=== PATIENT | male | born 1960 | race Caucasian/White ===

== ENCOUNTER 2020-11-29 04:59 | Inpatient (IN) ==
--- NOTE | 2020-11-09 14:15 | PAT Medication Instructions ---
Medication Instructions Date of Service November 09, 2020 Home Medications Medication Instructions Recorded hydrocodone-acetaminophen 1 - 2 tab PO .Q4-6h PRN #30 tab 09/23/20 MDD 6 Viibryd 10 mg PO QAM amlodipine 10 mg PO PM celecoxib 100 mg PO BID cholecalciferol (vitamin D3) [Vitamin D3] 25 mcg PO QAM losartan 100 mg PO QAM montelukast 10 mg PO QAM tramadol 50 mg PO QAM hydrocodone-acetaminophen 1 - 2 tab PO .Q4-6h PRN atorvastatin 10 mg PO QAM fluticasone propionate [Flonase] 1 spray INTRANASAL BID PRN gabapentin 300 mg PO QPM meloxicam 15 mg PO QPM multivitamin 1 tab PO QAM ASK your surgeon for instructions celecoxib 100 mg PO BID meloxicam 15 mg PO QPM DO NOT take the morning of surgery cholecalciferol (vitamin D3) [Vitamin D3] 25 mcg PO QAM losartan 100 mg PO QAM montelukast 10 mg PO QAM multivitamin 1 tab PO QAM Take morning of surgery With a small sip of water, OTHERWISE NOTHING TO EAT OR DRINK AFTER MIDNIGHT: Viibryd 10 mg PO QAM tramadol 50 mg PO QAM (okay to take up to 4 hours prior to surgery if needed) hydrocodone-acetaminophen 1 - 2 tab PO .Q4-6h PRN (okay to take up to 4 hours prior to surgery if needed) atorvastatin 10 mg PO QAM fluticasone propionate [Flonase] 1 spray INTRANASAL BID PRN (if needed) Take evening before surgery amlodipine 10 mg PO PM hydrocodone-acetaminophen 1 - 2 tab PO .Q4-6h PRN (if needed) fluticasone propionate [Flonase] 1 spray INTRANASAL BID PRN (if needed) gabapentin 300 mg PO QPM Other Notes If you have any questions please call us at [phone] or [phone] or [phone] or [phone]
--- NOTE | 2020-11-11 09:38 | Anesthesiology Consultation ---
Date of Service November 11, 2020 Assessment & Plan (1) Encounter for pre-operative examination: COVID Status: As of 11/11 assessment, patient denies travel to endemic area, known exposure/sick contacts, or symptoms of COVID19. Patient instructed that they and their household members must follow strict social distancing guidelines, wear a mask in public and avoid travel/events/gatherings for 14 days prior to surgery. Preoperative COVID19 testing to be completed prior to surgery per surgeon's arrangements (per pt 11/24). Patient made aware to self-isolate as much as possible between COVID testing and surgery. Pt is fully vaccinated. S/P shoulder arthroscopy 09/23/2020: MAC 4, ETT 7.5, grade view II. Chart Review Chart Review: Acceptable Risk for Surgery and Patient seen in Pre Admission T esting Teaching & Discussion Instructed NPO after midnight before surgery, except medications with 15 cc of water. Medication instructions provided according to the PAT guidelines. History Surgery Operation Date: 11/29/20 07:00 Proposed Procedures p Left Reversed Total Shoulder Arthroplasty - Shalom Vega MD Height/Weight Height: 6 ft Weight: 120.1 kg Allergies Allergy/AdvReac Type Severity Reaction Status Date / Time oxycodone [From OxyContin] Allergy Intermediate itching Verified 11/09/20 12:19 Medications Home Medications Medication Instructions Recorded Confirmed Last Taken Viibryd 10 mg PO QAM 09/06/20 11/09/20 09/22/20 07:00 amlodipine 10 mg PO PM 09/06/20 11/09/20 09/22/20 07:00 celecoxib 100 mg PO BID 09/06/20 11/09/20 09/22/20 07:00 cholecalciferol (vitamin D3) 25 mcg PO QAM 09/06/20 11/09/20 09/22/20 07:00 [Vitamin D3] losartan 100 mg PO QAM 09/06/20 11/09/20 09/22/20 07:00 montelukast 10 mg PO QAM 09/06/20 11/09/20 09/22/20 07:00 tramadol 50 mg PO QAM 09/06/20 11/09/20 09/22/20 07:00 hydrocodone-acetaminophen 1 - 2 tab PO .Q4-6h PRN #30 tab 09/23/20 11/09/20 Unknown MDD 6 atorvastatin 10 mg PO QAM 11/09/20 11/09/20 Unknown fluticasone propionate [Flonase] 1 spray INTRANASAL BID PRN 11/09/20 11/09/20 Unknown gabapentin 300 mg PO QPM 11/09/20 11/09/20 Unknown meloxicam 15 mg PO QPM 11/09/20 11/09/20 Unknown multivitamin 1 tab PO QAM 11/09/20 11/09/20 Unknown Past Medical History Medical History (Updated 11/11/20 @ 09:36 by Juventino Quijano) Anxiety Depression Hyperlipidemia Hypertension Osteoarthritis Sleep apnea cpap, pt reports full compliance Exercise / Class Metabolic Activity II 4-5 Yardwork/Stairs/Walk up hill Past Surgical History Surgical History (Updated 11/11/20 @ 09:36 by Juventino Quijano) History of appendectomy History of cholecystectomy History of colonoscopy MULTIPLE Hx of inguinal hernia repair Hx of shoulder surgery x3 left side Hx of sinus surgery x5 Past Anesthesia History No Hx of Anesthesia Complications and No Family Hx of Anesthesia Complications History of PONV No Hx of PONV and No Hx of Motion Sickness Social History Smoking Status: Never smoker Do You Dip or Chew Tobacco: No Hx Alcohol Use: Yes Alcohol type: hard liquor alcohol intake frequency: a few times a month Hx Substance Use: Yes Review of Systems Pt denies any recent chest pain, shortness of breath, palpitations, cough, fever, URI, or uncontrolled acid reflux. +shoulder pain Physical Exam Vital Signs BP: 151/88 P: 81bpm SPO2: 96% RA T: 97.9 F R: 16 ENMT Mouth: no dental restorations, no chipped teeth and no loose teeth Thyromental Distance: < 3.5 Finger Breadths (3) Mallampati Class: IV Neck normal visual inspection, + limited neck extension (mildly) and + facial hair (mustache) Respiratory normal respiratory effort, lungs clear to auscultation Cardiovascular RRR, no murmur, no edema Testing Laboratory Results Hemoglobin A1c 5.2 % (4.5-5.6) 11/11/20 09:49 Blood Type A Negative 11/11/20 09:49 Antibody Screen NEGATIVE 11/11/20 09:49 11/09/20 WBC: 7.1 H/H: 15.1/46.1 PLATELETS: 236 SODIUM: 141 POTASSIUM: 4.0 CHLORIDE: 105 CO2: 27 BUN: 17 CREATININE: 0.80 GLUCOSE: 85 PT: 13.8 PTT: 28 INR: 1.1 UA: WNL Electrocardiogram Date: 11/09/20 Sinus rhythm at 69 bpm with first-degree AV block. Left axis deviation. Compared with EKG of 08/31/2020, no significant change was found. Chest X-Ray Date: 11/09/20 Findings: + NAD
[2020-11-11 11:37] LABS: Estimated Average Glucose 103 mg/dl; Hemoglobin A1C 5.2 % (4.5-5.6)
--- NOTE | 2020-11-27 19:45 | History & Physical Report ---
Date of Service November 27, 2020 Assessment & Plan (1) Full thickness rotator cuff tear: Patient has a massive retracted rotator cuff tear that is not amenable to repair. He has failed conservative measures as above, as well as arthroscopic debridement. He has continued pain and dysfucntion. Treatment options discussed with patient. Risks, benefits and alternatives to surgery including but not limited to infection, DVT, pain, stiffness, need for revision surgery, damage to blood vessels, damage to nerves, PE, , were discussed with the patient and they wish to proceed. Plan will be for left reverse total shoulder arthroplasty at [facility] on 11/29/[address] Vega. All questions answered. He will follow up post operatively. Rotator cuff tear trauma status: traumatic Encounter type: s ubsequent encounter Laterality: left Qualified Code(s): S46.012D - Strain of muscle(s) and tendon(s) of the rotator cuff of left shoulder, subsequent encounter History of Present Illness Chief Complaint: Left shoulder pain Primary Care Provider: Frederick Hurd MD 59 year old male with PMHx significant for HTN, DEENA, high cholesterol presented to the office with acute onset left shoulder pain after a fall onto lateral aspect of arm. He has failed conservative measures including NSAIDs and physical therapy, as well as arthroscopic debridement. Has persistent shoulder pain and dysfunction. He has history of prior rotator cuff repair and revision repair. He had done well up until this new injury. CT arthrogram was obtained, due to metal anchors in his shoulder an MRI was not conclusive. Earlier this year he underwent arthroscopy on left shoulder and was found to have a massive irreparable rotator cuff tear. He has continued pain and dysfunction and cannot complete leisure or daily activities due to his pain. He would like to proceed with surgical intervention. Patient denies headaches, sweats, fevers, chills, double vision, blurred vision, cough, sore throat, dysphagia, chest pain, sob, wheezing, n/v/d/c, numbness, tingling, fatigue, urinary symptoms, mood disorders. ROS positive for left shoulder pain and stiffness. Allergies Allergy/AdvReac Type Severity Reaction Status Date / Time oxycodone [From OxyContin] Allergy Intermediate itching Verified 11/09/20 12:19 Home Medications Medication Instructions Recorded Confirmed Type Viibryd 10 mg PO QAM 09/06/20 11/09/20 History amlodipine 10 mg PO PM 09/06/20 11/09/20 History celecoxib 100 mg PO BID 09/06/20 11/09/20 History cholecalciferol (vitamin D3) 25 mcg PO QAM 09/06/20 11/09/20 History [Vitamin D3] losartan 100 mg PO QAM 09/06/20 11/09/20 History montelukast 10 mg PO QAM 09/06/20 11/09/20 History tramadol 50 mg PO QAM 09/06/20 11/09/20 History hydrocodone-acetaminophen 1 - 2 tab PO .Q4-6h PRN #30 tab 09/23/20 11/09/20 Rx MDD 6 atorvastatin 10 mg PO QAM 11/09/20 11/09/20 History fluticasone propionate [Flonase] 1 spray INTRANASAL BID PRN 11/09/20 11/09/20 History gabapentin 300 mg PO QPM 11/09/20 11/09/20 History meloxicam 15 mg PO QPM 11/09/20 11/09/20 History multivitamin 1 tab PO QAM 11/09/20 11/09/20 History Past Med/Surg History Medical History (Updated 11/11/20 @ 09:36 by Juventino Quijano) Anxiety Depression Hyperlipidemia Hypertension Osteoarthritis Sleep apnea cpap, pt reports full compliance Surgical History (Updated 11/11/20 @ 09:36 by Juventino Quijano) History of appendectomy History of cholecystectomy History of colonoscopy MULTIPLE Hx of inguinal hernia repair Hx of shoulder surgery x3 left side Hx of sinus surgery x5 Social History Smoking Status: Never smoker Second Hand Exposure: Yes (SPOUSE SMOKED); Do You Dip or Chew Tobacco: No; Hx Alcohol Use: Yes Alcohol type: hard liquor Hx Substance Use: Yes Preferred Language: Tongan Communication Ability: Effective Multiple Effect Evaporator Operator Required: No Beliefs That Will Affect Care: None Current Living Situation: Alone Other Information That Helps Us Care for You: No Feels Safe at Home: Yes Safety Concerns: Feels Safe At This Time Assistive Devices: Glasses Review of Systems All systems reviewed & are unremarkable except as noted in HPI & below Physical Exam Constitutional: well developed and well nourished; no acute distress Eyes: PERRL, conjunctivae normal, anicteric sclerae ENMT: external ear and nose normal, oropharynx normal Neck: trachea midline, no thyromegaly Respiratory: normal respiratory effort, lungs clear to auscultation Cardiovascular: RRR, no murmur, no edema Musculoskeletal: Left shoulder: positive impingement signs, ROM FF to 80 degrees actively, 160 passive. Abduction to 80 degrees actively and 160 passively. ROM is painful. Decreased strength left side. Strength 3/5 supraspinatus, 3+/5 infraspinatus, 5/5 subscapularis. Skin: no rashes, warm and dry Neurologic: patellar DTR's 2+ bilat, sensation intact Psychiatric: A+Ox3, euthymic affect Results & Data ([facility]) Laboratory Results Lab Results 11/11/20 11/11/20 Range/Units 09:49 09:49 Estimat Average Glucose 103 mg/dl Hemoglobin A1c 5.2 (4.5-5.6) % Blood Type A Negative Antibody Screen NEGATIVE Diagnostic Findings Left shoulder radiographs: No fracture. Mild degenerative changes. Post operative changes related to previous arthroscopy with metallic anchors humeral head. CT arthrogram: Full thickness recurrent tear rotator cuff retraction. Mild to moderate atrophy supraspinatus and infraspinatus
[2020-11-29] MEDS ORDERED: CeleBREX 200 MG CAP PO SCH (06:00)
[2020-11-29] MEDS ORDERED: FAMOTIDINE 20 MG TAB PO SCH (06:00)
[2020-11-29] MEDS ORDERED: TRANEXAMIC ACID 1,000 MG **IV Pre-op IV SCH (06:00)
[2020-11-29] MEDS ORDERED: ACETAMINOPHEN 500 MG TAB PO SCH (06:00)
[2020-11-29] MEDS ORDERED: dexAMETHasone 4 MG TAB PO SCH (06:00)
[2020-11-29] MEDS ORDERED: METOCLOPRAMIDE HCL 10 MG TABLET PO SCH (06:00)
[2020-11-29] MEDS ORDERED: LR 15ML/HR IV SCH (06:00)
[2020-11-29] MEDS ORDERED: TRANEXAMIC ACID 1,000 MG **IV Intra-op IV SCH (06:00)
[2020-11-29] MEDS ORDERED: GABAPENTIN 600 MG DOSE PO SCH (06:00)
[2020-11-29] MEDS ORDERED: BUPIVACAINE 0.5 % 5 MG/1 ML PF 10ML VIAL ONE (06:20)
[2020-11-29] MEDS ORDERED: ONDANSETRON INJ 2 MG/ML 2 ML VIAL ONE (06:43)
[2020-11-29] MEDS ORDERED: LIDOCAINE 2% 2 ML VIAL/AMP(20MG/ML) INFIL ONE (06:43)
[2020-11-29] MEDS ORDERED: DEXAMETHASONE SOD INJ 4 MG/ML VIAL ONE (06:43)
[2020-11-29] MEDS ORDERED: PROPOFOL IV EMULSION 10 MG/ML 20 ML VIAL IV ONE (06:43)
[2020-11-29] MEDS ORDERED: MIDAZOLAM HCL 1 MG/ML 2ML VIAL ONE (06:43)
[2020-11-29] MEDS ORDERED: fentaNYL citrate 100 MCG/2 ML VIAL ONE ×2 (06:43→08:13)
[2020-11-29] MEDS ORDERED: GLYCOPYRROLATE 0.2 MG/ML VIAL ONE (06:43)
[2020-11-29] MEDS ORDERED: NEOSTIGMINE METHYLSULFATE 5 MG/5 ML SYR ONE (06:43)
[2020-11-29] MEDS ORDERED: ePHEDrine sulfate 50 MG/ML AMP IV PRN (06:55)
[2020-11-29] MEDS ORDERED: fentaNYL citrate 100 MCG/2 ML VIAL IV PRN (06:55)
[2020-11-29] MEDS ORDERED: ONDANSETRON INJ 2 MG/ML 2 ML VIAL IV PRN ×2 (06:55→11:46)
[2020-11-29] MEDS ORDERED: ATROPINE SULFATE 0.1 MG/ML 10ML SYR IV PRN (06:55)
[2020-11-29] MEDS ORDERED: PROMETHAZINE HCL 6.25 MG in SODIUM CHLORIDE 0.9% 50 ML IV PRN (06:55)
--- NOTE | 2020-11-29 07:11 | History & Physical Bridge Note ---
Date of Service November 29, 2020 History & Physical Bridge Note I have examined the patient, reviewed the History & Physical and in the interval since the performance of the History & Physical I have noted the following changes of clinical significance: no changes noted
[2020-11-29] MEDS ORDERED: ePHEDrine sulfate 50 MG/ML AMP ONE (08:35)
[2020-11-29] MEDS ORDERED: ROCURONIUM BROMIDE 10 MG/ML 5 ML VIAL IV ONE ×3 (08:48→11:40)
--- NOTE | 2020-11-29 10:19 | Operative Report ---
Post Operative Report Pre & Post Diagnosis Operation Date: 11/29/20 07:00 Pre-Op Diagnosis: Left Shoulder Rotator Cuff Arthropathy, history of prior rotator cuff surgeries with recent arthroscopy documenting irreparable rotator cuff tear and biceps tendon retraction. Post-Op Diagnosis: Left shoulder rotator cuff arthropathy, irreparable full Thickness Rotator Cuff Tear, Incomplete Fracture Of Left proximal humerus retained hardware prior rotator cuff repair I identified the patient and participated in the time-out.: Yes Procedure Operation Date: 11/29/20 07:00 Actual Procedures p Left Reversed Total Shoulder Arthroplasty; Removal of Hardware (suture anchor); Dall Miles Cable fixation small Incomplete Fracture Of Left Humerus Fracture(Left) - Shalom Vega MD Surgeon Shalom Vega MD Reserve Officer Renan Aguirre Estimated Blood Loss 120 Findings Consistent with Post-Op Diagnosis Specimens Humeral head Drains 2 Hemovac Anesthesia Type General Regional Complications Small incomplete fracture proximal humerus anterior lateral humeral neck Disposition Accompanied Patient To Recovery: No Disposition: Recovery Room Indications 60-year-old male with multiple prior left shoulder arthroscopies with rotator cuff repair surgery in the past with a recent fall and a retear of his rotator cuff with failed rotator cuff repair and irreparable rotator cuff tear based on recent arthroscopy. Patient failed to have o any improvement with arthroscopic debridement. Description of Procedure The patient was taken to the operating room and anesthetized under regional block and general anesthetic. The patient was positioned on the operating table in a 30 beachchair position with a towel roll under the medial border of the left scapula. The arm was draped free to be able to manipulate the shoulder as needed. The left upper extremity was prepped and draped in usual sterile fashion. Exam demonstrated 130 degrees forward elevation 70 degrees abduction and 25 degrees external rotation. An anterior deltopectoral approach was performed. A longitudinal incision was made in the deltopectoral interval. The skin was incised sharply. Subcutaneous flaps were elevated off the fascia. The cephalic vein was dissected out and retracted lateral with the deltoid. The clavipectoral fascia was divided at the lateral margin of the conjoined tendon and extended up to the CA ligament. The following findings were noted subscapularis tendon was intact there was a small bit of supraspinatus intact in the rotator interval otherwise there was just scar tissue with scarred bursa in the superior rotator cuff area. There was an absent biceps tendon.. The upper centimeter of the pectoralis was released for inferior exposure. The subscapularis tendon was taken down off the lesser tuberosity using a subperiosteal peel dissection. A #1 Vicryl traction suture was placed into the free end of the subscapularis tendon and capsule. The subscapular muscle fibers were split longitudinally at the level of the circumflex vessels. The circumflex vessels were identified and tied off with silk ties and divided laterally. A Kitner elevator was used to free up the inferior fibers of the subscapularis off of the capsule. The axillary nerve was identified with a tug test and protected with a blunt Wanda retractor between the nerve and the capsule. The subscapularis tendon was then taken down off of the lesser tuberosity subperiosteally and subperiosteal dissection was performed along the neck of the humerus as the arm is gradually externally rotated exposing the humeral head. The humeral head findings demonstrated no osteophytes minor arthritic changes with intact articular surface. A Quispe elevator was used to assist in releasing the capsule of the neck of the humerus. The capsule was divided with Horne scissors down to the glenoid released off the anterior glenoid and the rotator interval was released to meet the capsular release and a 360 release of the subscapularis was accomplished. A Fukuda retractor was placed into the joint retracting the humeral head posterior. Glenoid findings demonstrated intact labrum but biceps was absent. The labrum was resected. an anterior-inferior and posterior inferior capsular release were performed with electrocautery and a Quispe elevator on bone with the axillary nerve protected inferiorly by the retractor. Attention was then taken to the humeral preparation. The cutting guide was placed into the humeral head. It was positioned at 20 of retroversion. Oscillating saw was used to resect the humeral head making the cut above the level of the posterior rotator cuff insertion site. The saw did hit some of the suture anchors making this cut so a remove the involved anchor with a rongeur. The humerus was then prepared for the stem. I used the ascend flex stem from [employer]. The sizing broaches were used followed by trial broaches up to a size 6 which had the appropriate fit and fill. The bone was very hard. There was dense metaphyseal bone as well. I did note that while broaching when the final broach was seated a crack developed in the anterior lateral neck area that did not extend distally but did extend about 5 mm. This was on the anterior lateral neck area below the subscapularis attachment site. I felt this possibly could propagate when putting in the final implants I put a 2 mm Dall-Miles cable around the proximal humerus tightened it appropriately and crimped the fixation device cut the wire to length and proceeded with the glenoid exposure. The appropriate sized cut protector was placed. The humerus was then retracted posterior to the glenoid. The glenoid was sized for a 42 mm glenoid sphere and 29 baseplate. The guide for the baseplate was positioned in a 10 inferior tilt and the central drill hole was made. The reamer for the 29 baseplate was used. The central drill was widened for the peg. The Tornier hydroxyapatite-coated 29 mm baseplate baseplate was impacted into position. The base plate was transfixed with superior and inferior locking screws and anterior and posterior compression screws with stable fixation. The fan reamer was used for the 42 millimeter glenoid sphere. After irrigation the 42 mm standard glenoid sphere was impacted onto the bas eplate and the screw was tightened. Attention was taken back to the humerus. The cut protector was removed and the plus 0 high offset humeral tray trial was assembled to the trial stem rotated appropriately to get bony coverage and then screwed in position. A trial reduction was performed. A 42+6 reversed trial insert demonstrated good stability and no shuck. The trials were removed. 3 drill holes are made into the harder bone in the bicipital groove area and 3 #5 FiberWire sutures were placed transosseously. The canal was irrigated with antibiotic solution with bacitracin. The final component was assembled. The final component was Tornier 6B long PTC stem, plus or high offset tray, 42+6 reversed insert. This was then impacted into the humerus with a tight press- fit. It was reduced to the glenoid sphere. Stability was verified. Subscapularis was repaired with the #5 FiberWire sutures using Devin-Burton suture technique. The pectoralis was repaired with #2 FiberWire [id number] sutures. The arm was taken through a range of motion which demonstrated 130 degrees forward elevation 9 degrees abduction and 50 degrees X rotation without tension on repair. The implant was stable through the range of motion tested. The wound was copiously irrigated. 2 Hemovac drains were placed. The deltopectoral interval was closed with [id number] #1 Vicryl sutures. The subcutaneous tissues were closed with 2-0 Vicryl sutures. The skin was closed with ivory. Sterile dressings were applied and a shoulder immobilizer. Renan Aguirre my physician digital marketing assistant assisted in the procedure to the entire procedure including patient positioning arm positioning prepping and draping soft tissue retraction instrument management suture management and performed the subcutaneous and skin closure and will participate in the postoperative care of the patient. I attest to the content of the Intraoperative Record and any orders documented therein. Any exceptions are noted below.
--- NOTE | 2020-11-29 11:12 | Anesthesiology Progress Note ---
Date of Service November 29, 2020 Anesthesia Post Procedure Vital Signs Vital Signs: Temp Pulse Pulse Resp BP Pulse Ox 11/29/20 11:05 37.3 C 94 H 21 128/71 92 11/29/20 10:55 92 H 20 117/72 91 11/29/20 10:45 94 H 18 125/70 91 11/29/20 10:35 95 H 21 128/75 95 11/29/20 10:25 89 20 129/73 94 11/29/20 10:19 36.4 C L 95 H 16 119/72 95 11/29/20 05:46 36.6 C 82 20 153/89 H 97 Pain Intensity Left Shoulder: Pain Intensity: 0 Transfer of Care Handoff Completed per policy Notes Mental Status: alert / awake / arousable Patient Amnestic to Procedure: Yes Nausea / Vomiting: adequately controlled Pain: adequately controlled Airway Patency, RR, SpO2: stable & adequate BP & HR: stable & adequate Hydration State: stable & adequate Anesthetic Complications: no major complications apparent Notes: block working well in pacu
[2020-11-29] MEDS ORDERED: HYDROmorphone INJ 0.5 MG/0.5 ML SYR IV PRN (11:46)
[2020-11-29] MEDS ORDERED: MAGNESIUM HYDROXIDE SUSP 30 ML UDC PO PRN (11:46)
[2020-11-29] MEDS ORDERED: NALOXONE HCL 0.4 MG/1 ML VIAL/CARP IV PRN (11:46)
[2020-11-29] MEDS ORDERED: FLUTICASONE PROPIONATE NA SPR 16 GM BTL PRN (11:46)
[2020-11-29] MEDS ORDERED: bisacodyL 10 MG SUPP PR PRN (11:46)
[2020-11-29] MEDS ORDERED: METOCLOPRAMIDE HCL INJ 5 MG/ML 2 ML VIAL IV PRN (11:46)
[2020-11-29] MEDS ORDERED: SODIUM CHLORIDE 0.9% 1000ML 1,000 ML IV SCH (11:46)
--- NOTE | 2020-11-29 11:59 | XRay Report ---
XR shoulder LT min 2V routine CLINICAL HISTORY: Post shoulder surgery COMPARISON: None. Correlation is made with CT of the left shoulder performed on August 23, 2020. DISCUSSION: Interval placement of a prosthetic left shoulder joint. Mild subcutaneous emphysema and skin ivory are seen. Small left pleural effusion is seen as well as mild atelectasis at the left base. IMPRESSION: 1. Postoperative changes as detailed above. 2. Small left pleural effusion as well as atelectasis at the left base. ACT 112: Negative or not required by law. Electronically signed by: Socorro Lin DO 11/29/2020 11:57 AM
--- NOTE | 2020-11-29 12:41 | Hospitalist Consultation ---
Date of Consultation November 29, 2020 Assessment & Plan (1) Full thickness rotator cuff tear: 11/29/20 Left Reversed Total Shoulder Arthroplasty, Dall Miles Cable Small Incomplete Fracture Of Left Humerus Fracture Surgeon: Shalom Vega. Surgery to manage pain management DVT prophylaxis and drains and dressings Patient be maintained on his gabapentin and choice of Celebrex as per surgical preference (2) Hypertension: Patient continue on amlodipine 10 losartan 100 (3) Hyperlipidemia: Patient tangela on atorvastatin 10 (4) Depression: For his depression he is on VIBRYD 10 mg he says he is okay missing a day of this is its a new antidepressant in the hospital is not have it on formulary (5) Sleep apnea: Per his home CPAP unit but looks for respiratory therapy to come up with some solutions to help him place his CPAP mask on with one hand is he is going to be slightly limited with his left shoulder surgery over the next couple of weeks History of Present Illness Attending Physician: Shalom Vega MD History of Present Illness Rest of see the patient medical consultation after he underwent a left reverse total shoulder shoulder arthroplasty with a Dall-Miles cable small incomplete fracture left humerus fracture repair 11/29/2020 Postoperatively patient was awake and alert he had a bandage on his left shoulder he had a WIL Hemovac in place he was mostly concerned about wearing his CPAP at night trying to put his mask on with one hand. He is also concerned as he does live alone. He was aware that we do not carry his depression medication and he is okay missing 1 day. Allergies Allergy/AdvReac Type Severity Reaction Status Date / Time oxycodone [From OxyContin] Allergy Intermediate itching Verified 11/29/20 05:29 Home Medications Medication Instructions Recorded Confirmed Type Viibryd 10 mg PO QAM 09/06/20 11/29/20 History amlodipine 10 mg PO PM 09/06/20 11/29/20 History celecoxib 100 mg PO BID 09/06/20 11/29/20 History cholecalciferol (vitamin D3) 25 mcg PO QAM 09/06/20 11/29/20 History [Vitamin D3] losartan 100 mg PO QAM 09/06/20 11/29/20 History montelukast 10 mg PO QAM 09/06/20 11/29/20 History tramadol 50 mg PO QAM 09/06/20 11/29/20 History hydrocodone-acetaminophen 1 - 2 tab PO .Q4-6h PRN #30 tab 09/23/20 11/29/20 Rx MDD 6 atorvastatin 10 mg PO QAM 11/09/20 11/29/20 History fluticasone propionate [Flonase] 1 spray INTRANASAL BID PRN 11/09/20 11/29/20 History gabapentin 300 mg PO QPM 11/09/20 11/29/20 History meloxicam 15 mg PO QPM 11/09/20 11/29/20 History multivitamin 1 tab PO QAM 11/09/20 11/29/20 History Patient History Medical History (Updated 11/29/20 @ 12:36 by Yousuf Phelps MD) Anxiety Depression Hyperlipidemia Hypertension Osteoarthritis Sleep apnea cpap, pt reports full compliance Surgical History History of appendectomy History of cholecystectomy History of colonoscopy MULTIPLE Hx of inguinal hernia repair Hx of shoulder surgery x3 left side Hx of sinus surgery x5 Social History Smoking Status: Never smoker Second Hand Exposure: Yes (SPOUSE SMOKED); Do You Dip or Chew Tobacco: No; Hx Alcohol Use: Yes Alcohol type: hard liquor Hx Substance Use: Yes Preferred Language: Pashto Communication Ability: Effective Threshing Operator Required: No Beliefs That Will Affect Care: None Current Living Situation: Alone Other Information That Helps Us Care for You: No Feels Safe at Home: Yes Safety Concerns: Feels Safe At This Time Assistive Devices: Glasses Review of Systems Review of Systems: Mild pain in his left shoulder, no distress, mild fatigue no headache, blurry or double vision no speech or swallowing issues chronic sinus congestion Minor left chest wall pain, pressure or palpitations no shortness of breath, cough or wheezes no abdominal pain, nausea or vomiting, diarrhea or constipation no dysuria, hematuria or frequency Left shoulder discomfort no back pain, CVA tenderness or radicular pain no bruising, bleeding or rashes no focal signs of weakness or numbness or altered sensation no complaints of anxiety or depression.. Physical Exam Physical Exam: The patient appeared well nourished and normally developed. Vital signs as documented. Head exam is normocephalic atraumatic Neck is without JVD, thyromegaly, or carotid bruits. Lungs are clear to auscultation, no focal loss of breath sounds Cardiac exam, Rhythm is regular.. No murmurs, rubs or gallops. Abdominal exam reveals normal bowel sounds, soft non tender, no masses Left shoulder has Elastoplast in place with a WIL drain he has good distal strength and sensation to his hand with good capillary refill in the left side Neurologic exam is alert and oriented, no focal loss of strength or sensation Skin is without bruises or rashes Psychologically is without concerns for anxiety or depression Results & Data Results & Data ([facility]) Vital Signs (Past 12 Hours) Vital Signs Temp Pulse Pulse Resp BP Pulse Ox 11/29/20 12:00 104 H 18 119/80 91 11/29/20 11:15 99.1 F 92 H 17 127/74 92 11/29/20 11:05 99.1 F 94 H 21 128/71 92 11/29/20 10:55 92 H 20 117/72 91 11/29/20 10:45 94 H 18 125/70 91 11/29/20 10:35 95 H 21 128/75 95 11/29/20 10:25 89 20 129/73 94 11/29/20 10:19 97.5 F L 95 H 16 119/72 95 11/29/20 05:46 97.9 F 82 20 153/89 H 97 PG Care Time/CCT Total # of Minutes Spent Total Time Spent with Patient: Total time spent is greater than 50% in coordination of care (as documented) at patient's floor/unit and/or counseling patient: Coding Level of Care Code 03166 Inpt Consult Level 3 Diagnoses Full thickness rotator cuff tear S46.012D Rotator cuff tear trauma status: traumatic Encounter type: subsequent encounter Laterality: left Hypertension I10 Hyperlipidemia E78.5 Depression F32.9 Sleep apnea G47.30 (1) Full thickness rotator cuff tear Rotator cuff tear trauma status: traumatic Encounter type: subsequent encounter Laterality: left Qualified Code(s): S46.012D - Strain of muscle(s) and tendon(s) of the rotator cuff of left shoulder, subsequent encounter
[2020-11-29] MEDS: ceFAZolin 2000MG 2,000 MG/15 ML SYR IV SCH ×2 (15:34→23:07)
--- NOTE | 2020-11-29 20:14 | Orthopedic Progress Note ---
Date of Service November 29, 2020 Assessment & Plan (1) Status post reverse total shoulder replacement: Stable post left reverse shoulder placement. I discussed a minor complication with a small crack that started placing the press-fit stem trial in place and we cabled it prior to putting the final implant in and was no adverse event with stable fixation of the final implant. I discussed with him that this should not affect his recovery and we will not take any particular precautions and participate in the normal reverse TSA rehab. Admission and Anticipated Discharge Date Admission Date: November 29, 2020 Subjective Patient doing well postop no pain able to move his hand. Still some numbness from the block. Review of Systems Review of Systems: Unremarkable feeling well. Physical Exam Physical Exam: Patient in sling good circulation sensorimotor exam. Results & Data ([facility]) Vital Signs (Past 12 Hours) Vital Signs Temp Pulse Pulse Pulse Resp BP Pulse Ox 11/29/20 19:12 36.6 C 96 H 18 135/84 92 11/29/20 14:30 36.7 C 103 H 18 130/78 11/29/20 13:24 99 H 18 113/56 L 11/29/20 12:34 106 H 18 141/78 H 91 11/29/20 12:00 104 H 18 119/80 91 11/29/20 11:30 37.0 C 103 H 18 113/56 L 11/29/20 11:15 37.3 C 92 H 17 127/74 92 11/29/20 11:05 37.3 C 94 H 21 128/71 92 11/29/20 10:55 92 H 20 117/72 91 11/29/20 10:45 94 H 18 125/70 91 11/29/20 10:35 95 H 21 128/75 95 11/29/20 10:25 89 20 129/73 94 11/29/20 10:19 36.4 C L 95 H 16 119/72 95
[2020-11-29] MEDS: DOCUSATE SODIUM 100 MG CAP PO SCH (20:33)
[2020-11-29] MEDS ORDERED: SENNA 8.6 MG TAB PO SCH (21:00)
[2020-11-29] MEDS ORDERED: GABAPENTIN 300 MG CAP PO SCH (21:00)
[2020-11-29] MEDS ORDERED: amLODIPine BESYLATE 5 MG TAB PO SCH (21:00)
[2020-11-30] MEDS: HYDROCODONE/ACETAMOPHEN 5/325MG TAB PO PRN ×2 (05:03→09:06)
[2020-11-30 07:07] LABS: Hematocrit (blood only) 39.9 % (42-52); Hemoglobin 13.5 g/dL (14.0-18.0); Immature Granulocytes # (auto) 0.04 K/uL (0.00-0.02); Immature Granulocytes % (auto) 0.3 %; Lymphocytes # (auto) 1.63 K/uL (1.2-3.4); Lymphocytes % (auto) 10.4 %; Mean Corpuscular Hemoglobin 31.3 pg (25-34); Mean Corpuscular Hgb Conc 33.8 g/dL (32-36); Mean Corpuscular Volume 92.6 fL (80-100); Mean Platelet Volume 9.4 fL (7.4-10.4); Monocytes # (auto) 1.13 K/uL (0.11-0.59); Monocytes % (auto) 7.2 %; Neutrophils # (auto) 12.86 K/uL (1.4-6.5); Neutrophils % (auto) 82.1 %; Platelet Count 231 K/uL (130-400); RDW Coefficient of Variation 13.3 % (11.5-14.5); RDW Standard Deviation 45.3 fL (36.4-46.3); Red Blood Count 4.31 M/uL (4.7-6.1); White Blood Count 15.66 K/uL (4.8-10.8)
[2020-11-30 07:25] LABS: BUN Creatinine Ratio 23.8 (10-20); Calcium 8.8 mg/dl (8.5-10.1); Creatinine Clr Calc Pharmacy 121.9 ml/min; Potassium 3.8 mmol/L (3.5-5.1)
--- NOTE | 2020-11-30 07:51 | Orthopedic Progress Note ---
Date of Service November 30, 2020 Assessment & Plan (1) Status post reverse total shoulder replacement: POD 1 s/p Left Reverse TSA PT/OT protocol this morning. Nonweightbearing on the left upper extremity DVT prophylaxis as written Pain management as written DC planning-plan for discharge to home with outpatient PT to begin after the patient's first return visit to the office. Admission and Anticipated Discharge Date Admission Date: November 29, 2020 Subjective Postop day 1 Patient is sitting up in bed awake and alert. Dr. Vega is currently seeing the patient as well. He has discussed with the patient about the small fracture in the humerus that was repaired with a cable. Patient is having a little bit of discomfort in his left shoulder after his block is worn off but his pain medications are helping. No other complaints at this time. Denies shortness of breath, chest pain, lightheadedness. He is hoping to go home today. Physical Exam Physical Exam: Dressings are clean, dry, and intact. NV intact. Moving fingers and wrist well. Cap refill is less than 2 seconds. Sensation intact. HV 50ml this AM. Results & Data ([facility]) Vital Signs (Past 12 Hours) Vital Signs Temp Pulse Pulse Resp BP Pulse Ox 11/30/20 07:19 36.5 C 84 16 146/76 H 94 11/30/20 04:28 36.8 C 82 18 135/71 93 11/29/20 23:36 36.7 C 90 18 114/68 96 11/29/20 20:32 88 119/74 Laboratory Results Laboratory Results WBC 15.66 K/uL (4.8-10.8) H 11/30/20 06:53 RBC 4.31 M/uL (4.7-6.1) L 11/30/20 06:53 Hgb 13.5 g/dL (14.0-18.0) L 11/30/20 06:53 Hct 39.9 % (42-52) L 11/30/20 06:53 MCV 92.6 fL (80-100) 11/30/20 06:53 MCH 31.3 pg (25-34) 11/30/20 06:53 MCHC 33.8 g/dL (32-36) 11/30/20 06:53 RDW Std Deviation 45.3 fL (36.4-46.3) 11/30/20 06:53 RDW Coeff of Luz 13.3 % (11.5-14.5) 11/30/20 06:53 Plt Count 231 K/uL (130-400) 11/30/20 06:53 MPV 9.4 fL (7.4-10.4) 11/30/20 06:53 Immature Gran % (Auto) 0.3 % 11/30/20 06:53 Neut % (Auto) 82.1 % 11/30/20 06:53 Lymph % (Auto) 10.4 % 11/30/20 06:53 [place] % (Auto) 7.2 % 11/30/20 06:53 Eos % (Auto) 0.0 % 11/30/20 06:53 Baso % (Auto) 0.0 % 11/30/20 06:53 Neut # (Auto) 12.86 K/uL (1.4-6.5) H 11/30/20 06:53 Lymph # (Auto) 1.63 K/uL (1.2-3.4) 11/30/20 06:53 [place] # (Auto) 1.13 K/uL (0.11-0.59) H 11/30/20 06:53 Eos # (Auto) 0.00 K/uL (0-0.5) 11/30/20 06:53 Baso # (Auto) 0.00 K/uL (0-0.2) 11/30/20 06:53 Immature Gran # (Auto) 0.04 K/uL (0.00-0.02) H 11/30/20 06:53 Sodium 139 mmol/L (136-145) 11/30/20 06:53 Potassium 3.8 mmol/L (3.5-5.1) 11/30/20 06:53 Chloride 107 mmol/L (98-107) 11/30/20 06:53 Carbon Dioxide 26 mmol/L (21-32) 11/30/20 06:53 Anion Gap 6.0 (3-11) 11/30/20 06:53 BUN 21 mg/dl (7-18) H 11/30/20 06:53 Creatinine 0.88 mg/dl (0.6-1.4) 11/30/20 06:53 Est Cr Clr Drug Dosing 121.9 ml/min 11/30/20 06:53 Est GFR ( Amer) 109.0 ml/min 11/30/20 06:53 Est GFR (Non-Af Amer) 94.0 ml/min 11/30/20 06:53 BUN/Creatinine Ratio 23.8 (10-20) H 11/30/20 06:53 Glucose 127 mg/dl (70-99) H 11/30/20 06:53 Estimat Average Glucose 103 mg/dl 11/11/20 09:49 Hemoglobin A1c 5.2 % (4.5-5.6) 11/11/20 09:49 Calcium 8.8 mg/dl (8.5-10.1) 11/30/20 06:53 COVID-19 Eval Order Covid19 [facility] 11/29/20 05:20 SARS-CoV-2, RNA, NAAT NEGATIVE (NEGATIVE) 11/29/20 05:20 Blood Type A Negative 11/11/20 09:49 Antibody Screen NEGATIVE 11/11/20 09:49 Impressions Shoulder X-Ray 11/29/20 10:46 XR shoulder LT min 2V routine CLINICAL HISTORY: Post shoulder surgery COMPARISON: None. Correlation is made with CT of the left shoulder performed on August 23, 2020. DISCUSSION: Interval placement of a prosthetic left shoulder joint. Mild subcutaneous emphysema and skin ivory are seen. Small left pleural effusion is seen as well as mild atelectasis at the left base. IMPRESSION: 1. Postoperative changes as detailed above. 2. Small left pleural effusion as well as atelectasis at the left base. ACT 112: Negative or not required by law. Electronically signed by: Socorro Lin DO 11/29/2020 11:57 AM
--- NOTE | 2020-11-30 08:00 | Hospitalist Progress Note ---
Date of Service November 30, 2020 Assessment & Plan (1) Full thickness rotator cuff tear: POD#1 s/p Left Reversed Total Shoulder Arthroplasty, Kirill Laughlin Small Incomplete Fracture Of Left Humerus Fracture with Dr. Vega on 11/29 Patient be maintained on his gabapentin and choice of Celebrex as per surgical preference H/h 13.5/39.9 -- acute blood loss anemia from surgery as well as dilutional from IVF WBC elevation from steroids in operative period -- afebrile, lungs clear, no sx infection PT/OT/pain management/DVT prophylaxis per primary service Plans for d/c today per primary service (2) Hypertension: Patient continue on amlodipine 10 Held losartan this morning for some dehydration but able to resume in AM BP acceptable given pain, 156/80 (3) Hyperlipidemia: Continue atorvastatin 10 (4) Depression: For his depression he is on VIBRYD 10 mg he says he is okay missing a day of this is its a new antidepressant in the hospital is not have it on formulary (5) Sleep apnea: Per his home CPAP unit but looks for respiratory therapy to come up with some solutions to help him place his CPAP mask on with one hand is he is going to be slightly limited with his left shoulder surgery over the next couple of weeks Thank you for allowing hospitalist service to participate int he care of Mr Del Castillo. Will sign off at this time. Please call with questions/concerns. Admission and Anticipated Discharge Date Admission Date: November 29, 2020 Subjective Patient evaluated this morning. He feels ready for discharge. Pain controlled with ordered medications -- this is his fourth operation on this shoulder (prior tear from falling on ice last winter following initial intervention in 2003 x 2). No numbness/tingling. Eating/drinking without issue. Passing gas and had BM. Plans for therapy in 6 weeks and to take it easy initially. No fever, chills, chest pain, shortness of breath, abdominal pain, nausea, vomiting or dysuria at this time. Review of Systems Review of Systems: All systems reviewed & are unremarkable except as noted in HPI & below Physical Exam Physical Exam: The patient appeared well nourished and normally developed. Sitting up in chair, dressed. NAD. Head exam is normocephalic atraumatic Neck is without JVD, thyromegaly, or carotid bruits. Lungs are clear to auscultation, no focal loss of breath sounds Cardiac exam, Rhythm is regular.. No murmurs, rubs or gallops. Abdominal exam reveals normal bowel sounds, soft non tender, no masses Left shoulder dressing c/d/i. drain in place with a WIL drain he has good distal strength and sensation to his hand with good capillary refill in the left side. NVI Neurologic exam is alert and oriented, no focal loss of strength or sensation Skin is without bruises or rashes Psychologically is without concerns for anxiety or depression Results & Data Results & Data ([facility]) Vital Signs (Past 12 Hours) Vital Signs Temp Pulse Pulse Resp BP Pulse Ox 11/30/20 07:19 36.5 C 84 16 146/76 H 94 11/30/20 04:28 36.8 C 82 18 135/71 93 11/29/20 23:36 36.7 C 90 18 114/68 96 11/29/20 20:32 88 119/74 Laboratory Results 11/30/20 11/30/20 Range/Units 06:53 06:53 WBC 15.66 H (4.8-10.8) K/uL RBC 4.31 L (4.7-6.1) M/uL Hgb 13.5 L (14.0-18.0) g/dL Hct 39.9 L (42-52) % MCV 92.6 (80-100) fL MCH 31.3 (25-34) pg MCHC 33.8 (32-36) g/dL RDW Std Deviation 45.3 (36.4-46.3) fL RDW Coeff of Luz 13.3 (11.5-14.5) % Plt Count 231 (130-400) K/uL MPV 9.4 (7.4-10.4) fL Immature Gran % (Auto) 0.3 % Neut % (Auto) 82.1 % Lymph % (Auto) 10.4 % [place] % (Auto) 7.2 % Eos % (Auto) 0.0 % Baso % (Auto) 0.0 % Neut # (Auto) 12.86 H (1.4-6.5) K/uL Lymph # (Auto) 1.63 (1.2-3.4) K/uL [place] # (Auto) 1.13 H (0.11-0.59) K/uL Eos # (Auto) 0.00 (0-0.5) K/uL Baso # (Auto) 0.00 (0-0.2) K/uL Immature Gran # (Auto) 0.04 H (0.00-0.02) K/uL Sodium 139 (136-145) mmol/L Potassium 3.8 (3.5-5.1) mmol/L Chloride 107 (98-107) mmol/L Carbon Dioxide 26 (21-32) mmol/L Anion Gap 6.0 (3-11) BUN 21 H (7-18) mg/dl Creatinine 0.88 (0.6-1.4) mg/dl Est Cr Clr Drug Dosing 121.9 ml/min Est GFR ( Amer) 109.0 ml/min Est GFR (Non-Af Amer) 94.0 ml/min BUN/Creatinine Ratio 23.8 H (10-20) Glucose 127 H (70-99) mg/dl Calcium 8.8 (8.5-10.1) mg/dl PG Care Time/CCT Total # of Minutes Spent Total Time Spent with Patient: Total time spent is greater than 50% in coordination of care (as documented) at patient's floor/unit and/or counseling patient: Coding Level of Care Code 97972 Subseq Obs Care Lvl 2 Diagnoses Full thickness rotator cuff tear S46.012D Rotator cuff tear trauma status: traumatic Encounter type: subsequent encounter Laterality: left Hypertension I10 Hyperlipidemia E78.5 Depression F32.9 Sleep apnea G47.30 (1) Full thickness rotator cuff tear Rotator cuff tear trauma status: traumatic Encounter type: subsequent encounter Laterality: left Qualified Code(s): S46.012D - Strain of muscle(s) and tendon(s) of the rotator cuff of left shoulder, subsequent encounter
[2020-11-30] MEDS: DOCUSATE SODIUM 100 MG CAP PO SCH (08:20)
[2020-11-30] MEDS ORDERED: CHOLECALCIFEROL 1,000 UNITS 25 MCG TAB PO SCH (09:00)
[2020-11-30] MEDS ORDERED: VILAZODONE 10 MG PO SCH (09:00)
[2020-11-30] MEDS ORDERED: MULTIVITAMIN TAB PO SCH ×2 (09:00)
[2020-11-30] MEDS ORDERED: ATORVASTATIN 10 MG TAB PO SCH (09:00)
[2020-11-30] MEDS ORDERED: LOSARTAN POTASSIUM 50 MG TAB PO SCH (09:00)
[2020-11-30] MEDS ORDERED: MONTELUKAST SODIUM 10 MG TABLET PO SCH (09:00)
--- NOTE | 2020-12-01 19:36 | Discharge Summary ---
Date of Service December 01, 2020 Admission HPI Per Admitting Provider 59 year old male with PMHx significant for HTN, DEENA, high cholesterol presented to the office with acute onset left shoulder pain after a fall onto lateral aspect of arm. He has failed conservative measures including NSAIDs and physical therapy, as well as arthroscopic debridement. Has persistent shoulder pain and dysfunction. He has history of prior rotator cuff repair and revision repair. He had done well up until this new injury. CT arthrogram was obtained, due to metal anchors in his shoulder an MRI was not conclusive. Earlier this year he underwent arthroscopy on left shoulder and was found to have a massive irreparable rotator cuff tear. He has continued pain and dysfunction and cannot complete leisure or daily activities due to his pain. He would like to proceed with surgical intervention. Patient denies headaches, sweats, fevers, chills, double vision, blurred vision, cough, sore throat, dysphagia, chest pain, sob, wheezing, n/v/d/c, numbness, tingling, fatigue, urinary symptoms, mood disorders. ROS positive for left shoulder pain and stiffness. Admission Exam Per Admitting Provider Constitutional: well developed and well nourished; no acute distress Eyes: PERRL, conjunctivae normal, anicteric sclerae ENMT: external ear and nose normal, oropharynx normal Neck: trachea midline, no thyromegaly Respiratory: normal respiratory effort, lungs clear to auscultation Cardiovascular: RRR, no murmur, no edema Musculoskeletal: Left shoulder: positive impingement signs, ROM FF to 80 degrees actively, 160 passive. Abduction to 80 degrees actively and 160 passively. ROM is painful. Decreased strength left side. Strength 3/5 supraspinatus, 3+/5 infraspinatus, 5/5 subscapularis. Skin: no rashes, warm and dry Neurologic: patellar DTR's 2+ bilat, sensation intact Psychiatric: A+Ox3, euthymic affect Principal Diagnosis Left shoulder rotator cuff tear Discharge Exam Constitutional well developed and well nourished; no acute distress Eyes PERRL, conjunctivae normal, anicteric sclerae ENMT external ear and nose normal, oropharynx normal Neck trachea midline, no thyromegaly Respiratory normal respiratory effort, lungs clear to auscultation Cardiovascular RRR, no murmur, no edema Skin no rashes, warm and dry Neurologic patellar DTR's 2+ bilat, sensation intact Psychiatric A+Ox3, euthymic affect Discharge Data Allergies Allergy/AdvReac Type Severity Reaction Status Date / Time oxycodone [From OxyContin] Allergy Intermediate itching Verified 11/29/20 05:29 Consultations 11/24/20 11:01 Consult Hospitalist Routine Procedures Performed Operation Date: 11/29/20 07:00 Actual Procedures p Left Reversed Total Shoulder Arthroplasty, Kirill Roby Truman Small Incomplete Fracture Of Left Humerus Fracture(Left) - Shalom Vega MD s Removal of Hardware (suture anchor),(Left) - Shalom Vega MD Ordered Studies 11/29/20 05:00 US - OR guided needle placemen Routine Hospital Course (1) Status post reverse total shoulder replacement: Patient presented for same day admission following left reverse TSA and cable fixation intraoperative proximal humerus fracture on 11/29/20. He tolerated procedure well. The Patient had an uneventful hospital course. Post-operatively, his activity was progressed and well tolerated. They participated in PT without issues. Labs remained stable- lowest hemoglobin recorded: 13.[address] Yousuf Phelps of medical service was consulted for medical management during admission. Pain controlled on oral medications. Please refer to daily progress notes and PT notes for complete details. After exam on 11/30/20, patient was felt to be stable for discharge home. Patient will f/u in the office in about 2 weeks for further evaluation including x-rays and incision check, sooner if having any issues or concerns. POD 1 s/p Left Reverse TSA PT/OT protocol this morning. Nonweightbearing on the left upper extremity DVT prophylaxis as written Pain management as written DC planning-plan for discharge to home with outpatient PT to begin after the patient's first return visit to the office. Lab Results 11/11/20 11/11/20 11/29/20 Range/Units 09:49 09:49 05:20 WBC (4.8-10.8) K/uL RBC (4.7-6.1) M/uL Hgb (14.0-18.0) g/dL Hct (42-52) % MCV (80-100) fL MCH (25-34) pg MCHC (32-36) g/dL RDW Std Deviation (36.4-46.3) fL RDW Coeff of Luz (11.5-14.5) % Plt Count (130-400) K/uL MPV (7.4-10.4) fL Immature Gran % (Auto) % Neut % (Auto) % Lymph % (Auto) % [place] % (Auto) % Eos % (Auto) % Baso % (Auto) % Neut # (Auto) (1.4-6.5) K/uL Lymph # (Auto) (1.2-3.4) K/uL [place] # (Auto) (0.11-0.59) K/uL Eos # (Auto) (0-0.5) K/uL Baso # (Auto) (0-0.2) K/uL Immature Gran # (Auto) (0.00-0.02) K/uL Sodium (136-145) mmol/L Potassium (3.5-5.1) mmol/L Chloride (98-107) mmol/L Carbon Dioxide (21-32) mmol/L Anion Gap (3-11) BUN (7-18) mg/dl Creatinine (0.6-1.4) mg/dl Est Cr Clr Drug Dosing ml/min Est GFR ( Amer) ml/min Est GFR (Non-Af Amer) ml/min BUN/Creatinine Ratio (10-20) Glucose (70-99) mg/dl Estimat Average Glucose 103 mg/dl Hemoglobin A1c 5.2 (4.5-5.6) % Calcium (8.5-10.1) mg/dl COVID-19 Eval Order Covid19 IDNow atMPAC SARS-CoV-2, RNA, NAAT (NEGATIVE) Blood Type A Negative Antibody Screen NEGATIVE 11/29/20 11/30/20 11/30/20 Range/Units 05:20 06:53 06:53 WBC 15.66 H (4.8-10.8) K/uL RBC 4.31 L (4.7-6.1) M/uL Hgb 13.5 L (14.0-18.0) g/dL Hct 39.9 L (42-52) % MCV 92.6 (80-100) fL MCH 31.3 (25-34) pg MCHC 33.8 (32-36) g/dL RDW Std Deviation 45.3 (36.4-46.3) fL RDW Coeff of Luz 13.3 (11.5-14.5) % Plt Count 231 (130-400) K/uL MPV 9.4 (7.4-10.4) fL Immature Gran % (Auto) 0.3 % Neut % (Auto) 82.1 % Lymph % (Auto) 10.4 % Treg[place] % (Auto) 7.2 % Eos % (Auto) 0.0 % Baso % (Auto) 0.0 % Neut # (Auto) 12.86 H (1.4-6.5) K/uL Lymph # (Auto) 1.63 (1.2-3.4) K/uL Treg[place] # (Auto) 1.13 H (0.11-0.59) K/uL Eos # (Auto) 0.00 (0-0.5) K/uL Baso # (Auto) 0.00 (0-0.2) K/uL Immature Gran # (Auto) 0.04 H (0.00-0.02) K/uL Sodium 139 (136-145) mmol/L Potassium 3.8 (3.5-5.1) mmol/L Chloride 107 (98-107) mmol/L Carbon Dioxide 26 (21-32) mmol/L Anion Gap 6.0 (3-11) BUN 21 H (7-18) mg/dl Creatinine 0.88 (0.6-1.4) mg/dl Est Cr Clr Drug Dosing 121.9 ml/min Est GFR ( Amer) 109.0 ml/min Est GFR (Non-Af Amer) 94.0 ml/min BUN/Creatinine Ratio 23.8 H (10-20) Glucose 127 H (70-99) mg/dl Estimat Average Glucose mg/dl Hemoglobin A1c (4.5-5.6) % Calcium 8.8 (8.5-10.1) mg/dl COVID-19 Eval Order SARS-CoV-2, RNA, NAAT NEGATIVE (NEGATIVE) Blood Type Antibody Screen Total Time Total Time Spent Total Time Spent (In Minutes): 20 Discharge Plan Discharge Items Patient Disposition: Home - Self-Care Reason For Visit: Left Shoulder Rotator Cuff Arthropathy Discharge Diagnosis: Left Shoulder Rotator Cuff Arthropathy Activity: Per Instructions section Weightbearing: Left non-weightbearing Non-emergency contact: Surgeon Call non-emergency contact if: you have any medication questions, your pain is not controlled, your temperature is above 101.5, your wound has increased redness and your wound has increased drainage Follow-up/Referrals: Frederick Hurd MD [Primary Care Provider] - Diet: Regular Addtl Attending Provider Instructions: ACTIVITY RECOMMENDATIONS: SELF CARE INSTRUCTIONS AFTER TOTAL SHOULDER ARTHROPLASTY REVERSE A. You may do daily exercises as taught in physical therapy while in hospital. No lifting with the operative arm. B. You are to wear your sling/immobilizer at all times EXCEPT when performing your daily exercises and for hygiene purposes. C. You may perform dry, daily dressing changes. Please keep your incision covered. You may shower 48 hours after surgery. Do not apply soap or any ointment/lotions directly over incision. Do not soak incision in bath tub/swimming pool. D. You may use ice as needed to operative shoulder. SPECIAL CARE INSTRUCTIONS: VERY IMPORTANT TO READ AND REVIEW A. There are a few signs you need to watch for after you are home. Call [facility] at [phone] if you experience any of the followin. Increased severe shoulder pain. Some pain is expected especially when you exercise. 2. Increased swelling in you shoulder or arm; pain or swelling in either upper extremity. 3. Any fluid drainage from the incision. 4. Shortness of breath or chest pain. B. Please call [facility] at [phone] if you have any questions or concerns about your operation or recovery. C. Call your physician if: 1. Temperature is greater than 101 degrees (F). 2. Pain is not relieved by prescribed pain medications. 3. Increase drainage or redness from incision. 4. Unanswered questions or concerns. FOLLOW UP VISIT: Please call [facility] at [phone] to schedule a follow up appointment with Dr. Vega or his PA in 12-14 days from your surgery date. Stand-Alone Forms: My [facility], Opioid Pain Management, Smoking Cessation Medications and DC Order Prescriptions: New hydrocodone-acetaminophen 5-325 mg tablet 1 - 2 tab PO Q4H MDD 8 tabs PRN (Reason: pain) Qty: 36 RF: 0 Continued amlodipine 10 mg Tablet 10 mg PO PM RF: 0 montelukast 10 mg Tablet 10 mg PO QAM RF: 0 losartan 100 mg Tablet 100 mg PO QAM RF: 0 cholecalciferol (vitamin D3) [Vitamin D3] 25 mcg (1,000 unit) Capsule 25 mcg PO QAM RF: 0 Viibryd 10 mg Tablet 10 mg PO QAM RF: 0 gabapentin 300 mg Capsule 300 mg PO QPM RF: 0 meloxicam 15 mg Tablet 15 mg PO QPM RF: 0 multivitamin Tablet 1 tab PO QAM RF: 0 fluticasone propionate 50 mcg/actuation [place],Suspension 1 spray INTRANASAL BID PRN (Reason: Allergy Symptoms) RF: 0 atorvastatin 20 mg Tablet 10 mg PO QAM RF: 0 Discontinued tramadol 50 mg Tablet 50 mg PO QAM RF: 0 celecoxib 100 mg Capsule 100 mg PO BID RF: 0 hydrocodone-acetaminophen 5-325 mg tablet 1 - 2 tab PO .Q4-6h MDD 6 PRN (Reason: pain) Qty: 30 RF: 0 Discharge Orders: Discharge Order (Routine); Ordered 11/30/20 Ordered By: Gary Fu/Other Patient Handouts: Preventing Deep Vein Thrombosis Admission Data Admit Date/Time: 11/29/20 10:46 Attending Provider: Shalom Vega Admit Provider: Shalom Vega Primary Care Provider: Frederick Hurd Other Providers: [facility] ; Errol Bautista. Other Interventions: Discharge Summary Assessment (RN) Last Done: 11/30/20 10:23
== END 2020-11-30 12:57 | disposition home or self-care (01) | DRG 483 ==
LOC: ASU 04:59 → 3E 10:46

== ENCOUNTER 2024-06-02 11:45 | Inpatient (IN) ==
--- NOTE | 2024-05-30 15:38 | Anesthesiology Consultation ---
Date of Service May 30, 2024 Assessment & Plan (1) Encounter for pre-operative examination: Chart Review Chart Review: Acceptable Risk for Surgery and Patient NOT seen in Pre Admission Testing -Infectious Disease screening: Per PAT nursing assessment on 05/30/24. No known infectious disease contacts in past 10 days or current infectious disease symptoms. No recent travel outside the country. Left Reverse TSA 11/29/20= Done under [place] with Grade 2 view with MAC #4. ETT #8.0. DL x 1 atraumatic History Surgery Operation Date: 06/02/24 07:00 Proposed Procedures p Left Shoulder Irrigation and Debridement, Glenoid Sphere Excision, Baseplate and Poly Exchange, Insert Antibiotic Beads, Removal of Cerclage Wire - Shalom Vega MD Height/Weight Height: 6 ft Weight: 120.202 kg Allergies Allergy/AdvReac Type Severity Reaction Status Date / Time oxycodone [From OxyContin] Allergy Intermediate itching Verified 05/30/24 15:37 Medications Home Medications Medication Instructions Recorded Confirmed Last Taken amlodipine 10 mg tablet 10 mg PO PM 09/06/20 05/30/24 11/28/20 19:30 cholecalciferol (vitamin D3) 25 25 mcg PO QAM 09/06/20 05/30/24 11/28/20 08:00 mcg (1,000 unit) capsule (Vitamin D3) losartan 100 mg tablet 100 mg PO QAM 09/06/20 05/30/24 11/28/20 08:00 montelukast 10 mg tablet 10 mg PO QAM 09/06/20 05/30/24 11/28/20 08:00 vilazodone 10 mg tablet (Viibryd) 10 mg PO QAM 09/06/20 05/30/24 11/28/20 08:00 atorvastatin 20 mg tablet 10 mg PO QAM 11/09/20 05/30/24 11/28/20 08:00 fluticasone propionate 50 1 spray intranasal BID PRN Allergy 11/09/20 05/30/24 Unknown mcg/actuation nasal Symptoms spray,suspension gabapentin 300 mg capsule 300 mg PO QPM 11/09/20 05/30/24 11/28/20 19:30 meloxicam 15 mg tablet 15 mg PO QPM 11/09/20 05/30/24 11/19/20 08:00 multivitamin 1 tab PO QAM 11/09/20 05/30/24 11/28/20 08:00 aspirin 81 mg capsule 81 mg PO WK 05/30/24 05/30/24 Unknown Past Medical History Medical History Anxiety Depression Hyperlipidemia Hypertension Osteoarthritis Sleep apnea cpap Past Family History Family History Other No family history of adverse response to anesthesia Past Surgical History Surgical History History of appendectomy History of cholecystectomy History of colonoscopy MULTIPLE History of shoulder surgery (11/2020) Left Reverse TSA 11/29/20= Done under [place] with Grade 2 view with MAC #4. ETT #8.0. DL x 1 atraumatic Hx of inguinal hernia repair Hx of shoulder surgery x3 left side Hx of sinus surgery x5 Social History Smoking Status: Never smoker Do You Dip or Chew Tobacco: No Hx Alcohol Use: Yes Alcohol type: hard liquor alcohol intake frequency: a few times a month Hx Substance Use: Yes substance use type: prescription drug Lab Results Anesthesia Preop Results Results Anesthesia Widget: WBC 8.63 K/ul (4.8-10.8) 05/30/24 Hgb 13.7 g/dl (14.0-18.0) L 05/30/24 Hct 41.5 % (42.0-52.0) L 05/30/24 Plt 381 K/uL (130-400) 05/30/24 Na 140 mmol/L (136-145) 05/30/24 K 3.7 mmol/L (3.5-5.1) 05/30/24 Cl 105 mmol/L (98-107) 05/30/24 CO2 27 mmol/L (21-32) 05/30/24 BUN 15 mg/dl (6-23) 05/30/24 Creat 0.84 mg/dl (0.6-1.4) 05/30/24 Glucose Level 88 mg/dl (70-99(Fasting)) 05/30/24 PT 12.2 Seconds (9.0-12.0) H 05/30/24 PTT 26 Seconds (21-31) 05/30/24 INR 1.1 (0.9-1.1) 05/30/24 Urine Color Yellow 05/30/24 Urine Appearance Clear (Clear) 05/30/24 Urine pH 7.0 (4.5-7.5) 05/30/24 Urine Specific [place] 1.008 (1.000-1.030) 05/30/24 Urine Protein Negative (Negative) 05/30/24 Urine Glucose (UA) Negative (Negative) 05/30/24 Urine Ketones Negative (Negative) 05/30/24 Urine Blood Negative (Negative) 05/30/24 Urine Nitrite Negative (Negative) 05/30/24 Urine Bilirubin Negative (Negative) 05/30/24 Urine Urobilinogen Negative (Negative) 05/30/24 Urine Leukocyte Esterase Negative (Negative) 05/30/24 Blood Type A Negative 05/30/24 Antibody Screen NEGATIVE 05/30/24 Testing Electrocardiogram Date: 05/30/24 SR with 1st degree AVB at 76bpm Left anterior fascicular block Chest X-Ray Date: 05/30/24 FINDINGS: The cardiomediastinal silhouette and pulmonary vasculature appear within normal limits. Linear scarring/subsegmental atelectasis in the right upper lobe and left lower lobe. No infiltrate, pleural effusion or pneumothorax. No acute osseous abnormality evident. Left shoulder prosthesis noted. IMPRESSION: No acute cardiopulmonary process
--- NOTE | 2024-05-31 09:56 | History & Physical Report ---
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 No loosening of components. Recommend left reverse shoulder replacement DAIR procedure with glenoid sphere exchange, polyethylene and baseplate exchange, extensive debridement, removal of cerclage wire, placement of antibiotic beads, IV antibiotics. History of Present Illness Chief Complaint: Acute onset left shoulder pain status post reverse shoulder replacement. Primary Care Provider: Frederick Hurd MD 63-year-old male status post reverse shoulder replacement 3 and half years ago status post multiple prior shoulder surgeries. Patient did well post reverse replacement and had no pain until several weeks ago when developed acute pain which she attributed possibly to a strain of his shoulder. Inflammatory paramet ers were obtained due to acute pain which demonstrated increase C-reactive protein and sed rate with normal white blood cell count and differential. Aspirate of the shoulder demonstrated fluid concerning for infection and corynebacterium growing out of cultures. Patient denies headaches, sweats, fevers, chills, double vision, blurred vision, cough, sore throat, dysphagia, chest pain, sob, wheezing, n/v/d/c, numbness, tingling, fatigue, urinary symptoms. ROS positive for asthma and anxiety. Allergies Allergy/AdvReac Type Severity Reaction Status Date / Time oxycodone [From OxyContin] Allergy Intermediate itching Verified 05/30/24 15:37 Home Medications Medication Instructions Recorded Confirmed Type amlodipine 10 mg tablet 10 mg PO PM 09/06/20 05/30/24 History cholecalciferol (vitamin D3) 25 25 mcg PO QAM 09/06/20 05/30/24 History mcg (1,000 unit) capsule (Vitamin D3) losartan 100 mg tablet 100 mg PO QAM 09/06/20 05/30/24 History montelukast 10 mg tablet 10 mg PO QAM 09/06/20 05/30/24 History vilazodone 10 mg tablet (Viibryd) 10 mg PO QAM 09/06/20 05/30/24 History atorvastatin 20 mg tablet 10 mg PO QAM 11/09/20 05/30/24 History fluticasone propionate 50 1 spray intranasal BID PRN Allergy 11/09/20 05/30/24 History mcg/actuation nasal Symptoms spray,suspension gabapentin 300 mg capsule 300 mg PO QPM 11/09/20 05/30/24 History meloxicam 15 mg tablet 15 mg PO QPM 11/09/20 05/30/24 History multivitamin 1 tab PO QAM 11/09/20 05/30/24 History aspirin 81 mg capsule 81 mg PO WK 05/30/24 05/30/24 History Past Med/Surg History Problem List (Updated 05/31/24 @ 10:01 by Shalom Vega MD) 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 ETT #8.0. DL x 1 atraumatic Hx of sinus surgery x5 Hx of shoulder surgery x3 left side History of colonoscopy MULTIPLE Hx of inguinal hernia repair History of cholecystectomy History of appendectomy Family History Other No family history of adverse response to anesthesia Social History Smoking Status: Never smoker Tobacco Type: Smokeless Tobacco (Dip or Chew) Second Hand Exposure: Yes (SPOUSE SMOKED); Do You Dip or Chew Tobacco: No (quit 1998); Tobacco Cessation Education Requested by Patient: No Hx Alcohol Use: Yes Alcohol type: hard liquor Hx Substance Use: No Preferred Language: Serbian Communication Ability: Effective Route Agent Required: No Beliefs That Will Affect Care: None marital status: / Current Living Situation: Alone Other Information That Helps Us Care for You: No Feels Safe at Home: Yes Safety Concerns: Feels Safe At This Time Assistive Devices: CPAP and Glasses Review of Systems All systems reviewed & are unremarkable except as noted in HPI & below Physical Exam Constitutional: WD/WN, vitals as above Respiratory: normal respiratory effort; no respiratory distress Cardiovascular: Rate/Rhythm: regular rate and regular rhythm Musculoskeletal: Left shoulder exam demonstrates no erythema no drainage no particular swelling. He has moderate painful range of motion the forward flexion is 120 degrees the external and internal rotation are 45 and 75 degrees. Abduction 90 degrees. Shoulder strength decreased. Distal neurological exam intact. Skin: no rashes, warm and dry Neurologic: normal touch/pain/proprioception Psychiatric: A+Ox3, euthymic affect Results & Data Laboratory Results Culture left shoulder moderate white blood cells rare gram-positive cocci with corynebacterium species no sensitivities. White blood cell count 8.63 with 65.3% neutrophils. C-reactive protein 1.64. ESR 83. Diagnostic Findings Bone scan no clear evidence of infection or loosening but some increased signal activity around the glenoid component could be consistent with postsurgical changes. X-rays no evidence of loosening with reverse replacement normally aligned components cerclage wire around the proximal humerus.
--- NOTE | 2024-06-01 15:01 | Anesthesiology Consultation ---
Date of Service June 01, 2024 Assessment & Plan (1) Encounter for pre-operative examination: Chart Review Chart Review: Acceptable Risk for Surgery History Surgery Operation Date: 06/02/24 07:00 Proposed Procedures p Left Shoulder Irrigation and Debridement, Glenoid Sphere Excision, Baseplate and Poly Exchange, Insert Antibiotic Beads, Removal of Cerclage Wire - Shalom Vega MD Height/Weight Height: 6 ft Weight: 120.202 kg Allergies Allergy/AdvReac Type Severity Reaction Status Date / Time oxycodone [From OxyContin] Allergy Intermediate itching Verified 05/30/24 15:37 Medications Home Medications Medication Instructions Recorded Confirmed Last Taken amlodipine 10 mg tablet 10 mg PO PM 09/06/20 05/30/24 11/28/20 19:30 cholecalciferol (vitamin D3) 25 25 mcg PO QAM 09/06/20 05/30/24 11/28/20 08:00 mcg (1,000 unit) capsule (Vitamin D3) losartan 100 mg tablet 100 mg PO QAM 09/06/20 05/30/24 11/28/20 08:00 montelukast 10 mg tablet 10 mg PO QAM 09/06/20 05/30/24 11/28/20 08:00 vilazodone 10 mg tablet (Viibryd) 10 mg PO QAM 09/06/20 05/30/24 11/28/20 08:00 atorvastatin 20 mg tablet 10 mg PO QAM 11/09/20 05/30/24 11/28/20 08:00 fluticasone propionate 50 1 spray intranasal BID PRN Allergy 11/09/20 05/30/24 Unknown mcg/actuation nasal Symptoms spray,suspension gabapentin 300 mg capsule 300 mg PO QPM 11/09/20 05/30/24 11/28/20 19:30 meloxicam 15 mg tablet 15 mg PO QPM 11/09/20 05/30/24 11/19/20 08:00 multivitamin 1 tab PO QAM 11/09/20 05/30/24 11/28/20 08:00 aspirin 81 mg capsule 81 mg PO WK 05/30/24 05/30/24 Unknown Past Medical History Medical History Depression Anxiety Osteoarthritis Hyperlipidemia Hypertension Sleep apnea cpap Past Family History Family History Other No family history of adverse response to anesthesia Past Surgical History Surgical History History of shoulder surgery (11/2020) Left Reverse TSA 11/29/20= Done under [place] with Grade 2 view with MAC #4. ETT #8.0. DL x 1 atraumatic Hx of sinus surgery x5 Hx of shoulder surgery x3 left side History of colonoscopy MULTIPLE Hx of inguinal hernia repair History of cholecystectomy History of appendectomy Social History Smoking Status: Never smoker Do You Dip or Chew Tobacco: No (quit 1998) Hx Alcohol Use: Yes Alcohol type: hard liquor alcohol intake frequency: a few times a month Hx Substance Use: No substance use type: does not use Testing Laboratory Results Laboratory Tests 05/30/24 14:38 Hgb 13.7 L Plt Count 381 Potassium 3.7 Creatinine 0.84 Electrocardiogram Date: 05/30/24 Findings: + NSR @ (76) 1st degree AV block
[2024-06-02] MEDS: LR 60ML/HR IV SCH (12:53)
[2024-06-02] MEDS: LACTATED RINGER'S 1,000 ML IV SCH (12:53)
[2024-06-02] MEDS ORDERED: ONDANSETRON INJ 2 MG/ML 2 ML VIAL IV PRN ×2 (15:24→20:40)
[2024-06-02] MEDS ORDERED: ATROPINE SULFATE 0.1 MG/ML 10ML SYR IV PRN (15:24)
[2024-06-02] MEDS ORDERED: PROMETHAZINE HCL 6.25 MG in SODIUM CHLORIDE 0.9% 50 ML IV PRN (15:24)
[2024-06-02] MEDS ORDERED: ePHEDrine sulfate 50 MG/ML AMP IV PRN (15:24)
[2024-06-02] MEDS ORDERED: fentaNYL citrate PF 100 MCG/2 ML VIAL IV PRN (15:24)
[2024-06-02] MEDS ORDERED: ROCURONIUM BROMIDE 10 MG/ML 5 ML VIAL IV ONE ×2 (15:40→17:42)
[2024-06-02] MEDS ORDERED: LIDOCAINE 2% 2 ML VIAL/AMP(20MG/ML) INFIL ONE (15:40)
[2024-06-02] MEDS ORDERED: ONDANSETRON INJ 2 MG/ML 2 ML VIAL ONE ×2 (15:40→19:04)
[2024-06-02] MEDS ORDERED: fentaNYL citrate PF 100 MCG/2 ML VIAL ONE ×2 (15:40→19:06)
[2024-06-02] MEDS ORDERED: MIDAZOLAM HCL 1 MG/ML 2ML VIAL ONE (15:40)
[2024-06-02] MEDS ORDERED: PROPOFOL IV EMULSION 10 MG/ML 20 ML VIAL IV ONE ×2 (15:40→17:42)
[2024-06-02] MEDS ORDERED: BUPIVACAINE 0.5 % 5 MG/1 ML PF 10ML VIAL ONE (15:48)
--- NOTE | 2024-06-02 15:55 | History & Physical Bridge Note ---
Date of Service June 02, 2024 History & Physical Bridge Note I have examined the patient, reviewed the History & Physical and in the interval since the performance of the History & Physical I have noted the following changes of clinical significance: no changes noted
[2024-06-02] MEDS ORDERED: ceFAZolin 3,000 MG in DEXTROSE 5% 50 ML IV STA (15:57)
[2024-06-02] MEDS: TRANEXAMIC ACID 100 MG/ML 10 ML VIAL IV ONE (17:00)
[2024-06-02] MEDS ORDERED: DEXAMETHASONE SOD INJ 4 MG/ML VIAL ONE (17:00)
[2024-06-02] MEDS: VANCOMYCIN HCL 1000MG/20ML VIAL ONE (17:06)
[2024-06-02] MEDS: TRANEXAMIC ACID / 0.7% NACL 1000MG/100ML BAG IV ONE (17:08)
[2024-06-02] MEDS ORDERED: SUGAMMADEX SODIUM 200 MG/2 ML VIAL IV ONE (17:25)
[2024-06-02] MEDS ORDERED: PHENYLEPHRINE 100MCG/ML 5ML SYR ONE (17:51)
[2024-06-02] MEDS ORDERED: ePHEDrine sulfate 50 MG/5 ML SYR ONE (17:51)
--- NOTE | 2024-06-02 19:49 | Operative Report ---
Post Operative Report Pre & Post Diagnosis Operation Date: 06/02/24 07:00 Pre-Op Diagnosis: Infected Left reversed total Shoulder Arthroplasty Post-Op Diagnosis: Infected Left reversed total Shoulder Arthroplasty I identified the patient and participated in the time-out.: Yes Procedure Operation Date: 06/02/24 07:00 Actual Procedures p Left Shoulder: Irrigation and extensive debridement, Exchange of Reverse Glenoid Sphere, and humerus Tray and Polyethylene, Insertion of Stimulan Antibiotic Beads, Removal of Cerclage Wire(Left) - Shalom Vega MD Surgeon Shalom Vega MD Logistics Engineering Manager Peter ALBA Estimated Blood Loss 100 Findings Consistent with Post-Op Diagnosis Specimens Multiple cultures Drains 2 Hemovac Anesthesia Type General Regional Complications none Disposition Disposition: Recovery Room Indications 63-year-old male who had acute onset left shoulder pain 3 weeks ago. He felt that he strained a muscle in his shoulder. His inflammatory parameters were elevated however with elevated ESR greater than CRP with normal white cell count and normal differential. He has had no fevers. Just increased pain in the shoulder. Workup included bone scan and ultrasound-guided joint aspirate. Bone scan did have some increased uptake on the glenoid side but not on humeral side no suggestion of loosening and no suggestion of definitive infection. Aspirate of shoulder did grow out corynebacterium species no sensitivities. Description of Procedure Patient was placed under regional block and general anesthetic. Patient was placed on the beachchair position on a standard operating room table with a towel roll under his left scapula, a foam headrest, protective eyewear, teds and SCDs, all extremities well-padded. Left shoulder exam demonstrates 120 degrees forward flexion 90 degrees abduction and neutral external rotation only. No instability. No erythema. No drainage. No swelling. Left upper extremity was prepped and draped with ChloraPrep. Incision was made through his anterior deltopectoral scar. Skin incised sharply. Subcutaneous flaps were elevated off the deltoid and pectoralis. There was no cephalic vein. The deltopectoral interval was developed down through scar tissue until the conjoined tendon was identified. This was dissected up to the coracoid process. Dissection was taken lateral to the conjoined tendon down to subscapularis capsular type tissue. There were old sutures from the prior repair noted. There was no evidence of any infection at this level. Incision was carried down to bone the humerus. The Dall-Miles type cable was identified and there was no infection around that cable. The deltoid was reflected off the greater tuberosity. Some calcifications were removed which appeared to be heterotopic bone. The capsule of the joint was then opened up over the supraspinatus area location of the shoulder and purulent fluid was noted within the joint. This was cultured. This capsular tissue was then taken down with a subperiosteal dissection off the neck of the humerus anteriorly. There was some inflammatory tissue around the proximal humerus component with some erosion of the bone which looked like more of a chronic response then his symptoms suggested. There was erosion around 8 mm deep around the prosthetic circumferentially. This soft tissue in this area was cultured. The capsular tissue overlying the reverse replacement was excised superiorly. The synovium was excised anterior inferiorly and posteriorly leaving some of the capsular tissue intact for protection. This point I was able to use a bone hook to dislocate the implant. There was no polyethylene wear noted. Tuning fork was used to remove the baseplate uneventfully. Underneath the baseplate there was yellow infected appearing membrane which was cultured. This point I was able to retract the humerus behind the glenoid sphere and the security screw was loosened and then the extraction device was deployed removing the head uneventfully. Between the head and the glenoid baseplate there was more this fibrinous type yellow tissue that was sent for culture. With the baseplate fully exposed now with retractors it was noted that there was some erosion of the bone under the edges of the baseplate about 5 mm deep with some erosions. There was inflammatory type synovitis tissue that was removed. I used angled curettes and pituitary rongeur and curved rongeur's to remove this tissue. After further cultures were obtained we administered the IV antibiotics with 2 g Ancef. Baseplate was solidly fixed all screws were not loose. This time I used further irrigation to irrigate the bone around the baseplate and the humeral implants thoroughly. Pulsatile lavage irrigation was performed. A Betadine soak was used for over 3 minutes. This was washed out with further irrigation followed by irrigation with Xperience. Stimulan beads were mixed with vancomycin 1 g. The beads were packed under the edges of the baseplate into the erosions on the glenoid. These were packed circumflex inferential around the glenoid baseplate and then a 42 diameter glenoid sphere with 29 mm inner diameter to match the 29 baseplate was impacted into position and the security screw tightened. The humerus was also irrigated with the Xperience the Sylvester taper dried and then the +0 high offset tray was placed with the high offset superior in position. Trial reduction demonstrated a 9 mm insert gave us satisfactory stability and I chose to use a retentive implant for the final implant to assure better stability. The final implant was the 9 mm retentive 42 reversed polyethylene. B angle 12.5 degrees. The humerus was then reduced to the glenoid. I then removed the cerclage wire using a district wire chief and this was removed uneventfully. I packed antibiotic beads around the humerus where the erosions were prior to reduction. Shoulder was stable and there was 120 degrees of forward flexion 90 degrees abduction and 30 to 40 degrees of external rotation with good stability. More irrigation with Xperience performed. Remainder the antibiotic beads were placed. 2 Hemovac drains were placed. These were placed deep to the deltopectoral interval. Deltopectoral interval was closed with PDS #1 suture. Subcutaneous tissues were closed with 2-0 antibiotic resistant Vicryl. Skin was closed with ivory. Silverlon dressing was applied. Sling immobilizer was applied. The patient tolerated procedure well. Peter ALBA is my product safety technical assistant and functioned as product safety technical assistant throughout the entire procedure. He was critical instructional support assistant with regard to retraction instrument management arm positioning wound closure and will participate in postoperative care of the patient. I attest to the content of the Intraoperative Record and any orders documented therein. Any exceptions are noted below.
--- NOTE | 2024-06-02 20:39 | Anesthesiology Progress Note ---
Date of Service June 02, 2024 Anesthesia Post Procedure Vital Signs Vital Signs: Temp Pulse Resp BP Pulse Ox O2 Del Method O2 Flow Rate 06/02/24 20:20 36.8 C 85 14 135/79 95 Nasal Cannula 2 06/02/24 20:10 87 16 125/83 94 Nasal Cannula 2 06/02/24 20:00 85 18 136/88 94 Oxymask 3 06/02/24 19:49 36.3 C L 91 H 16 148/86 H 97 Oxymask 6 06/02/24 12:23 36.7 C 77 20 144/91 H 95 Room Air Pain Intensity Left Shoulder: Pain Intensity: 6 Transfer of Care Handoff Completed per policy Notes Mental Status: alert / awake / arousable Patient Amnestic to Procedure: Yes Nausea / Vomiting: adequately controlled Pain: adequately controlled Airway Patency, RR, SpO2: stable & adequate BP & HR: stable & adequate Hydration State: stable & adequate Anesthetic Complications: no major complications apparent
[2024-06-02] MEDS ORDERED: FLUTICASONE PROPIONATE NA SPR 16 GM BTL PRN (20:40)
[2024-06-02] MEDS ORDERED: MAGNESIUM HYDROXIDE SUSP 30 ML UDC PO PRN (20:40)
[2024-06-02] MEDS ORDERED: ALUMINUM/MAGNESIUM SUSP 30 ML UDC PO PRN (20:40)
[2024-06-02] MEDS ORDERED: diphenhydrAMINE Capsule 25 MG CAP PO PRN (20:40)
[2024-06-02] MEDS ORDERED: NALOXONE HCL 0.4 MG/1 ML VIAL/CARP IV PRN (20:40)
[2024-06-02] MEDS ORDERED: METOCLOPRAMIDE HCL INJ 5 MG/ML 2 ML VIAL IV PRN (20:40)
[2024-06-02] MEDS ORDERED: HYDROmorphone INJ 0.5 MG/0.5 ML SYR IV PRN (20:40)
[2024-06-02] MEDS ORDERED: KETOROLAC TROMETHAMINE 15 MG/ML VIAL IV PRN (20:40)
[2024-06-02] MEDS ORDERED: TAMSULOSIN HCL 0.4 MG CAP PO PRN (20:40)
[2024-06-02] MEDS ORDERED: bisacodyL 10 MG SUPP PR PRN (20:40)
--- NOTE | 2024-06-02 20:54 | Hospitalist Consultation ---
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 Pain control and VTE ppx per primary team. ID consulted for abx management - currently on Cefazolin 2 g Q8H. Cultures pending - adjust as indicated. PT/OT ordered. f/u cultures f/u ID recs continue Cefazolin 2 g Q8H for now Pain regimen: Dilaudid 0.5 mg IV Q4H PRN Vicodin 1-2 tabs PO Q4H PRN Toradol 15 mg IV Q6H PRN Naloxone on board Antiemetics: Zofran IV Q6H PRN Metoclopramide IV Q6H PRN (2) Hypertension: Continue amlodipine and losartan as BP tolerates. Put in comm order to hold PM dosing 06/02 as BP 118/74. (3) Osteoarthritis: On meloxicam outpatient. Hold while in the perioperative phase and using Toradol. Can then resume. (4) Depression: Continue Vilazodone (5) Anxiety: Continue Vilazodone (6) Hyperlipidemia: Continue statin therapy. (7) Sleep apnea: CPAP ordered for while inpatient. (8) Rhinitis: Continue PRN flonase. Plan Code status: full DVT ppx: SCDs, ASA 81 mg BID, per primary team FENGI: regular Dispo: MedSurg, PT/OT consulted Supervising Physician Co-Signing Physician Notes Attending addendum: I have physically seen this patient, have supervised the medical residents activities, and agree with the H&P unless as otherwise noted. Assessment and Plan: Left shoulder prosthetic joint infection- Status post OR 06/02 pain control and VTE prophylaxis per primary service Hypertension- Continue amlodipine and losartan with hold parameters as noted Depression/anxiety- Continue Vilazodone Sleep apnea- CPAP at bedtime Remaining orders and notations as noted History of Present Illness Reason for Consultation: med management Requesting Physician: Shalom Vega MD Attending Physician: Dr. Garcia History of Present Illness 63 y/o here for surgical management of infection associated with joint prothesis. Patient about 3.5 years out from left shoulder replacement. Was having pain. Found to have elevated inflammatory markers and likely infection. Underwent surgical procedure today. Hospitalist team consulted for routine medication management. Upon my interview, patient is doing well. Relatively pain free at this time. No nausea or vomiting. No CP or SOB. No headache or vision changes. Does note that he's lost about 40 pounds and is trying to get his BP down with lifestyle changes. Allergies Allergy/AdvReac Type Severity Reaction Status Date / Time oxycodone [From OxyContin] Allergy Intermediate itching Verified 06/02/24 12:25 Home Medications Medication Instructions Recorded Confirmed Type amlodipine 10 mg tablet 10 mg PO BID 09/06/20 06/02/24 History cholecalciferol (vitamin D3) 25 25 mcg PO QAM 09/06/20 06/02/24 History mcg (1,000 unit) capsule (Vitamin D3) losartan 100 mg tablet 100 mg PO QPM 09/06/20 06/02/24 History montelukast 10 mg tablet 10 mg PO QAM 09/06/20 06/02/24 History vilazodone 10 mg tablet (Viibryd) 10 mg PO QAM 09/06/20 06/02/24 History atorvastatin 20 mg tablet 10 mg PO QAM 11/09/20 06/02/24 History fluticasone propionate 50 1 spray intranasal BID PRN Allergy 11/09/20 06/02/24 History mcg/actuation nasal Symptoms spray,suspension gabapentin 300 mg capsule 300 mg PO QPM 11/09/20 06/02/24 History meloxicam 15 mg tablet 15 mg PO QPM 11/09/20 06/02/24 History multivitamin 1 tab PO QAM 11/09/20 06/02/24 History aspirin 81 mg capsule 81 mg PO WK 05/30/24 06/02/24 History Patient History Medical History Depression Anxiety Osteoarthritis Hyperlipidemia Hypertension Sleep apnea cpap Surgical History History of shoulder surgery (11/2020) Left Reverse TSA 11/29/20= Done under GA with Grade 2 view with MAC #4. ETT #8.0. DL x 1 atraumatic Hx of sinus surgery x5 Hx of shoulder surgery x3 left side History of colonoscopy MULTIPLE Hx of inguinal hernia repair History of cholecystectomy History of appendectomy Family History Other No family history of adverse response to anesthesia Social History Smoking Status: Never smoker Tobacco Type: Smokeless Tobacco (Dip or Chew) Second Hand Exposure: Yes (SPOUSE SMOKED); Do You Dip or Chew Tobacco: No (quit 1998); Tobacco Cessation Education Requested by Patient: No Hx Alcohol Use: Yes Alcohol type: hard liquor Hx Substance Use: No Preferred Language: Latvian Communication Ability: Effective Pad Machine Feeder Required: No Beliefs That Will Affect Care: None marital status: / Current Living Situation: Alone Other Information That Helps Us Care for You: No Feels Safe at Home: Yes Safety Concerns: Feels Safe At This Time Assistive Devices: None Review of Systems Review of Systems: See HPI Physical Exam Physical Exam: Gen: well appearing patient in NAD HEENT: AT NC MMM Resp: CTAB no wheezing no increased work of breathing CV: RRR no m/r/g clinically well perfused Abd: soft, non-tender, non-distended, decreased breath sounds MSK: no obvious deformities Skin: no rashes or bruising Neuro: alert and oriented Psych: appropriate mood and affect Results & Data Results & Data Vital Signs (Past 12 Hours) Vital Signs Temp Pulse Resp BP Pulse Ox O2 Del Method O2 Flow Rate 06/02/24 20:20 36.8 C 85 14 135/79 95 Nasal Cannula 2 06/02/24 20:10 87 16 125/83 94 Nasal Cannula 2 06/02/24 20:00 85 18 136/88 94 Oxymask 3 06/02/24 19:49 36.3 C L 91 H 16 148/86 H 97 Oxymask 6 06/02/24 12:23 36.7 C 77 20 144/91 H 95 Room Air Resident Activity Tracking Resident Involvement: Resident Care Provided Care Provided: Adult Hospital Medicine
[2024-06-02] MEDS: ASPIRIN 81 MG ECTAB PO SCH (21:49)
[2024-06-02] MEDS: GABAPENTIN 300 MG CAP PO SCH (21:49)
[2024-06-02] MEDS: SENNA 8.6 MG TAB PO SCH (21:50)
[2024-06-02] MEDS: ceFAZolin 2000MG 2,000 MG/15 ML SYR IV SCH (21:50)
[2024-06-02] MEDS: DOCUSATE SODIUM 100 MG CAP PO SCH (21:50)
[2024-06-02] MEDS: amLODIPine BESYLATE 5 MG TAB PO SCH (22:03)
[2024-06-02] MEDS: LOSARTAN POTASSIUM 50 MG TAB PO SCH (22:04)
[2024-06-02] MEDS: ceFAZolin 3000MG 3,000 MG/72.5 ML BAG IV SCH (23:27)
--- NOTE | 2024-06-02 23:47 | XRay Report ---
Exam(s): XR LEFT SHOULDER, 2+ views EXAM: XR Left Shoulder Complete, 2 Views CLINICAL HISTORY: Reason for exam: Post shoulder surgery. TECHNIQUE: Two views of the left shoulder. COMPARISON: No relevant prior studies available. FINDINGS: Bones/joints: The patient is status post total shoulder replacement. No acute fracture. No dislocation. Soft tissues: Surgical clips are seen. There is soft tissue densities noted. IMPRESSION: Status post total shoulder replacement. There is soft tissue densities which may represent antibiotic plugs.. Electronically signed by: Ignacio Valle MD 06/02/24 23:46 PM
[2024-06-03] MEDS: TRANEXAMIC ACID / 0.7% NACL 1,000 MG/100 ML BAG IV SCH (01:52)
[2024-06-03 06:18] LABS: Basophils # (auto) 0.01 K/uL (0.00-0.20); Basophils % (auto) 0.1 %; Eosinophils # (auto) 0.01 K/uL (0.00-0.50); Eosinophils % (auto) 0.1 %; Hematocrit (blood only) 37.2 % (42.0-52.0); Hemoglobin 12.3 g/dl (14.0-18.0); Immature Granulocytes # (auto) 0.03 K/uL (0.01-0.20); Immature Granulocytes % (auto) 0.3 %; Lymphocytes # (auto) 1.25 K/uL (1.20-3.40); Lymphocytes % (auto) 12.1 %; Mean Corpuscular Hemoglobin 29.6 pg (25.0-34.0); Mean Corpuscular Hgb Conc 33.1 g/dL (32.0-36.0); Mean Corpuscular Volume 89.4 fL (80.0-100.0); Mean Platelet Volume 8.8 fL (9.4-12.4); Monocytes # (auto) 0.59 K/uL (0.11-0.59); Monocytes % (auto) 5.7 %; Neutrophils # (auto) 8.41 K/uL (1.40-6.50); Neutrophils % (auto) 81.7 %; Platelet Count 308 K/uL (130-400); RDW Standard Deviation 42.9 fL (36.4-46.3); Red Blood Count 4.16 M/uL (4.70-6.10)
[2024-06-03 06:53] LABS: BUN Creatinine Ratio 18.1 (10-20); Calcium 8.7 mg/dl (8.6-10.3); Creatinine Clr Calc Pharmacy 109.8 ml/min; Potassium 4.1 mmol/L (3.5-5.1)
[2024-06-03] MEDS: HYDROCODONE/ACETAMOPHEN 5/325MG TAB PO PRN (08:35)
[2024-06-03] MEDS: dexAMETHasone 10 MG in SYRINGE 0 ML IV SCH (08:35)
[2024-06-03] MEDS: CHOLECALCIFEROL 25 MCG (1000 UNITS) TAB PO SCH (08:36)
[2024-06-03] MEDS: ATORVASTATIN 10 MG TAB PO SCH (08:36)
[2024-06-03] MEDS: MULTIVITAMIN TAB PO SCH (08:36)
[2024-06-03] MEDS: MONTELUKAST SODIUM 10 MG TABLET PO SCH (08:36)
[2024-06-03] MEDS ORDERED: NON-FORMULARY MEDICATION (Multivitamin Tablet) PO SCH (09:00)
--- NOTE | 2024-06-03 11:06 | Hospitalist Progress Note ---
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 Vega on 06/02. - Bowel regiment, Pain control and VTE ppx per primary team. - ID consulted for abx management - currently on Cefazolin 2 g Q8H. - Cultures pending - adjust as indicated. - PT/OT ordered. (2) Hypertension: Plan: Continue amlodipine and losartan as BP tolerates. Kidney function acceptable. (3) Osteoarthritis: Plan: On meloxicam outpatient. Hold while in the perioperative phase and using Toradol. Can then resume. (4) Depression: Plan: Continue Vilazodone (5) Anxiety: Plan: Continue Vilazodone (6) Hyperlipidemia: Plan: Continue statin therapy. (7) Sleep apnea: Plan: CPAP ordered for while inpatient. (8) Rhinitis: Plan: Continue PRN flonase. Plan DVT ppx: SCDs, ASA 81 mg BID, per primary team Dispo: medically stable, awaiting ID input. Thank you for allowing us to participate in the care of this patient, medicine will sign off. Please reach out with any new questions or concerns Admission and Anticipated Discharge Date Admission Date: June 02, 2024 Supervising Physician Co-Signing Physician Notes I discussed and agree with the plan as noted by PARTH Solomon. Subjective Bill is seen sitting up in the chair - reports feeling well. Has not seen infectious disease yet, but reports plan is for lifelong abx therapy. Does feel better - reports chronic ill feeling over the last year. Passing gas since surgery. good appetite. Review of Systems Review of Systems: All systems reviewed & are unremarkable except as noted in Subjective Physical Exam Physical Exam: General: NAD, VS as above Resp: normal respiratory effort, lungs clear to auscultation CV: RRR, no murmur, Abd:soft, non tender, no hepatosplenomegaly Extremities: Moves all extremities, left arm in sling, drain in place, able to wiggle fingers. 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
[2024-06-03] MEDS ORDERED: VANCOMYCIN CONSULT ACTIVE PRN (11:13)
[2024-06-03] MEDS: VANCOMYCIN IV ONE (12:11)
[2024-06-03] MEDS: D5W IV ONE (12:11)
--- NOTE | 2024-06-03 13:38 | Orthopedic Progress Note ---
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 No loosening of components. Some bone erosion noted at the time of surgery so likely acute exacerbation of chronic infection most likely. Left reverse shoulder replacement DAIR procedure with glenoid sphere exchange, polyethylene and baseplate exchange, extensive debridement, removal of cerclage wire, placement of antibiotic beads, IV antibiotics. Discussed with patient substantial morbidity of removing metal implants which would be extremely difficult to remove having them being very well-fixed and with corynebacterium being an organism of the lower very lungs might be less morbidity treating this with 6 weeks IV antibiotics followed by oral antibiotics for life with suppression. Patient would be agreeable to this treatment if successful. If not successful or further erosion and loosening occurs we can always remove the implants in the future and do staged type revision surgery if possible. Admission and Anticipated Discharge Date Admission Date: June 02, 2024 Subjective Still has some numbness in his thumb and index finger but notes that the block is mostly worn off. Patient not having any significant pain. Review of Systems Review of Systems: No fever or chills. Feels well in general Physical Exam Musculoskeletal: Dressing dry and intact. Hemovac drain intact. Sling intact. Distal neurological exam intact with some minor decrease sensation thumb and index finger still only. Results & Data Vital Signs (Past 12 Hours) Vital Signs Temp Pulse Pulse Pulse Resp BP Pulse Ox 06/03/24 12:19 36.5 C 75 16 148/85 H 94 06/03/24 08:07 36.5 C 68 16 154/87 H 94 06/03/24 05:11 36.7 C 73 18 132/81 94 O2 Del Method 06/03/24 12:19 Room Air 06/03/24 08:07 Room Air 06/03/24 05:11 Room Air Laboratory Results Cultures no growth to date intraoperative prior cultures corynebacterium species Diagnostic Findings X-rays normally located reverse shoulder replacement with antibiotic beads and drains.
--- NOTE | 2024-06-03 14:09 | Pharmacy Report ---
Pharmacy PK ABX Note - Date of Service June 03, 2024 - Assessment and Plan Assessment 63 year old M receiving vancomycin for treatment of bone and joint infection. Pertinent microbiologic data includes: shoulder,left gram stain: no growth. Day #1 of antimicrobial therapy. Plan Vancomycin * Loading dose: 2750 mg IV x 1 * Maintenance dose: 1500 mg IV every 12 hours * Regimen is predicted to achieve target AUC/ANUSHA of 400-600 mg/L.hr Pharmacy will continue to follow and will adjust dose/frequency as necessary. Thank you. Pharmacy has transitioned to AUC monitoring for vancomycin. AUC/ANUSHA is the preferred PK/PD target and is associated with decreased risk of nephrotoxicity compared to traditional trough targets.
--- NOTE | 2024-06-03 15:55 | Infectious Disease Consult ---
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 on 05/19, now s/p I&D with exchange of glenoid sphere/humerus tray/polyethylene, insertion of Stimulan vancomycin beads on 06/02. ID is consulted for L shoulder PJI. The patient underwent L reverse shoulder replacement 3.5 years ago. 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 The patient underwent bone scan on 05/28 which showed some uptake on the glenoid side; no loosening and no definitive e/o infection. L shoulder joint aspiration on 05/19 (fluid reportedly c/f infection; cell count not in [employer]), Cx + Corynebacterium spp (no sensis sent). No fevers or chills. He was recommended to undergo L shoulder replacement DAIR procedure with glenoid sphere exchange, polyethylene and baseplate exchange, extensive debridement, removal of cerclage wire, placement of antibiotic beads, IV antibiotics. On 06/02, he underwent: I&D with exchange of glenoid sphere/humerus tray/polyethylene, insertion of Stimulan vancomycin beads. OR Cx pending. He was initially placed on cefazolin. Discussion Pt presented with L shoulder PJI, now s/p I&D with exchange of glenoid sphere/humerus tray/polyethylene, insertion of Stimulan vancomycin beads on 06/02. ID is consulted for L shoulder PJI. Will follow OR Cx. For PJI, given retention of hardware, will likely recommend 6-weeks of pathogen-directed abx (often IV abx), followed by PO suppressive abx for at least 3-6 months, if not longer/indefinitely. Given outpatient Cx from 11/4 with Corynebacterium spp, will continue IV vancomycin (rather than daptomycin, which can have Corynebacterium resistance) while awaiting OR Cx. Recommendations: - Change to IV vancomycin (dosing per Rx) - F/u 06/02 OR Cx ID will continue to follow. Debbi Gould MD, MHS Infectious Diseases [facility]/ID Connect ID Connect direct line: [phone] Consultation Information This patient recommendation is based on a telemedicine consult request which was completed asynchronously through chart review and information provided by the primary physician. The patient was not seen or examined today. The evaluation is consultative in nature and all patient care and treatment decisions can either be accepted or rejected by the patient's primary hospital-based treating physician using their own independent medical judgment for their patient. Environmental Consultant contact information: Please call ID Connect Call Center . 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 on 05/19, now s/p I&D with exchange of glenoid sphere/humerus tray/polyethylene, insertion of Stimulan vancomycin beads on 06/02. ID is consulted for L shoulder PJI. The patient underwent L reverse shoulder replacement 3.5 years ago. 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 The patient underwent bone scan on 05/28 which showed some uptake on the glenoid side; no loosening and no definitive e/o infection. L shoulder joint aspiration on 05/19 (fluid reportedly c/f infection; cell count not in [employer]), Cx + Corynebacterium spp (no sensis sent). No fevers or chills. He was recommended to undergo L shoulder replacement DAIR procedure with glenoid sphere exchange, polyethylene and baseplate exchange, extensive debridement, removal of cerclage wire, placement of antibiotic beads, IV antibiotics. On 06/02, he underwent: I&D with exchange of glenoid sphere/humerus tray/polyethylene, insertion of Stimulan vancomycin beads. OR Cx pending. He was initially placed on cefazolin. Allergies Allergy/AdvReac Type Severity Reaction Status Date / Time oxycodone [From OxyContin] Allergy Intermediate itching Verified 06/02/24 12:25 Home Medications Medication Instructions Recorded Confirmed Type amlodipine 10 mg tablet 10 mg PO BID 09/06/20 06/02/24 History cholecalciferol (vitamin D3) 25 25 mcg PO QAM 09/06/20 06/02/24 History mcg (1,000 unit) capsule (Vitamin D3) losartan 100 mg tablet 100 mg PO QPM 09/06/20 06/02/24 History montelukast 10 mg tablet 10 mg PO QAM 09/06/20 06/02/24 History vilazodone 10 mg tablet (Viibryd) 10 mg PO QAM 09/06/20 06/02/24 History atorvastatin 20 mg tablet 10 mg PO QAM 11/09/20 06/02/24 History fluticasone propionate 50 1 spray intranasal BID PRN Allergy 11/09/20 06/02/24 History mcg/actuation nasal Symptoms spray,suspension gabapentin 300 mg capsule 300 mg PO QPM 11/09/20 06/02/24 History meloxicam 15 mg tablet 15 mg PO QPM 11/09/20 06/02/24 History multivitamin 1 tab PO QAM 11/09/20 06/02/24 History aspirin 81 mg capsule 81 mg PO WK 05/30/24 06/02/24 History Patient History Medical History Depression Anxiety Osteoarthritis Hyperlipidemia Hypertension Sleep apnea cpap Surgical History History of shoulder surgery (11/2020) Left Reverse TSA 11/29/20= Done under GA with Grade 2 view with MAC #4. ETT #8.0. DL x 1 atraumatic Hx of sinus surgery x5 Hx of shoulder surgery x3 left side History of colonoscopy MULTIPLE Hx of inguinal hernia repair History of cholecystectomy History of appendectomy Family History Other No family history of adverse response to anesthesia Social History Smoking Status: Never smoker Tobacco Type: Smokeless Tobacco (Dip or Chew) Second Hand Exposure: Yes (SPOUSE SMOKED); Do You Dip or Chew Tobacco: No (quit 1999); Tobacco Cessation Education Requested by Patient: No Hx Alcohol Use: Yes Alcohol type: hard liquor Hx Substance Use: No Preferred Language: Bahamian Communication Ability: Effective Overnight Stocker Required: No Beliefs That Will Affect Care: None marital status: / Current Living Situation: Alone Other Information That Helps Us Care for You: No Feels Safe at Home: Yes Safety Concerns: Feels Safe At This Time Assistive Devices: None Results & Data Vital Signs (Past 12 Hours) Vital Signs Temp Pulse Pulse Pulse Resp BP Pulse Ox 06/03/24 14:59 36.5 C 73 16 127/75 93 06/03/24 12:19 36.5 C 75 16 148/85 H 94 06/03/24 08:07 36.5 C 68 16 154/87 H 94 06/03/24 05:11 36.7 C 73 18 132/81 94 O2 Del Method 06/03/24 14:59 Room Air 06/03/24 12:19 Room Air 06/03/24 08:07 Room Air 06/03/24 05:11 Room Air Diagnostic Findings Diagnostics: 06/03 OR note p Left Shoulder: Irrigation and extensive debridement, Exchange of Reverse Glenoid Sphere, and humerus Tray and Polyethylene, Insertion of Stimulan Antibiotic Beads, Removal of Cerclage Wire(Left) - Shalom Vega MD Patient was placed under regional block and general anesthetic. Patient was placed on the beachchair position on a standard operating room table with a towel roll under his left scapula, a foam headrest, protective eyewear, teds and SCDs, all extremities well-padded. Left shoulder exam demonstrates 120 degrees forward flexion 90 degrees abduction and neutral external rotation only. No instability. No erythema. No drainage. No swelling. Left upper extremity was prepped and draped with ChloraPrep. Incision was made through his anterior deltopectoral scar. Skin incised sharply. Subcutaneous flaps were elevated off the deltoid and pectoralis. There was no cephalic vein. The deltopectoral interval was developed down through scar tissue until the conjoined tendon was identified. This was dissected up to the coracoid process. Dissection was taken lateral to the conjoined tendon down to subscapularis capsular type tissue. There were old sutures from the prior repair noted. There was no evidence of any infection at this level. Incision was carried down to bone the humerus. The Dall-Miles type cable was identified and there was no infection around that cable. The deltoid was reflected off the greater tuberosity. Some calcifications were removed which appeared to be heterotopic bone. The capsule of the joint was then opened up over the supraspinatus area location of the shoulder and purulent fluid was noted within the joint. This was cultured. This capsular tissue was then taken down with a subperiosteal dissection off the neck of the humerus anteriorly. There was some inflammatory tissue around the proximal humerus component with some erosion of the bone which looked like more of a chronic response then his symptoms suggested. There was erosion around 8 mm deep around the prosthetic circumferentially. This soft tissue in this area was cultured. The capsular tissue overlying the reverse replacement was excised superiorly. The synovium was excised anterior inferiorly and posteriorly leaving some of the capsular tissue intact for protection. This point I was able to use a bone hook to dislocate the implant. There was no polyethylene wear noted. Tuning fork was used to remove the baseplate uneventfully. Underneath the baseplate there was yellow infected appearing membrane which was cultured. This point I was able to retract the humerus behind the glenoid sphere and the security screw was loosened and then the extraction device was deployed removing the head uneventfully. Between the head and the glenoid baseplate there was more this fibrinous type yellow tissue that was sent for culture. With the baseplate fully exposed now with retractors it was noted that there was some erosion of the bone under the edges of the baseplate about 5 mm deep with some erosions. There was inflammatory type synovitis tissue that was removed. I used angled curettes and pituitary rongeur and curved rongeur's to remove this tissue. After further cultures were obtained we administered the IV antibiotics with 2 g Ancef. Baseplate was solidly fixed all screws were not loose. This time I used further irrigation to irrigate the bone around the baseplate and the humeral implants thoroughly. Pulsatile lavage irrigation was performed. A Betadine soak was used for over 3 minutes. This was washed out with further irrigation followed by irrigation with Xperience. Stimulan beads were mixed with vancomycin 1 g. The beads were packed under the edges of the baseplate into the erosions on the glenoid. These were packed circumflex inferential around the glenoid baseplate and then a 42 diameter glenoid sphere with 29 mm inner diameter to match the 29 baseplate was impacted into position and the security screw tightened. The humerus was also irrigated with the Xperience the Sylvester taper dried and then the +0 high offset tray was placed with the high offset superior in position. Trial reduction demonstrated a 9 mm insert gave us satisfactory stability and I chose to use a retentive implant for the final implant to assure better stability. The final implant was the 9 mm retentive 42 reversed polyethylene. B angle 12.5 degrees. The humerus was then reduced to the glenoid. I then removed the cerclage wire using a wire sawyer and this was removed uneventfully. I packed antibiotic beads around the humerus where the erosions were prior to reduction. Shoulder was stable and there was 120 degrees of forward flexion 90 degrees abduction and 30 to 40 degrees of external rotation with good stability. More irrigation with Xperience performed. Remainder the antibiotic beads were placed. 2 Hemovac drains were placed. These were placed deep to the deltopectoral interval. Deltopectoral interval was closed with PDS #1 suture. Subcutaneous tissues were closed with 2-0 antibiotic resistant Vicryl. Skin was closed with ivory. Silverlon dressing was applied. Sling immobilizer was applied. The patient tolerated procedure well. Peter ALBA is my clinical education assistant and functioned as clinical education assistant throughout the entire procedure. He was critical cosmetic sales assistant with regard to retraction instrument management arm positioning wound closure and will participate in postoperative care of the patient. Micro Data: 06/02 L shoulder OR Cx: PEND 05/19 L shoulder aerobic/anaerobic Cx: Corynebacterium spp; gram stain mod WBCs, rare GPCs Antibiotic Summary: Vancomycin (06/02 present); 06/02 Stimulan beads intraoperatively Cefazolin (06/02) Abx Allergies: none
[2024-06-03] MEDS: MELOXICAM 7.5 MG TAB PO SCH (20:46)
--- NOTE | 2024-06-03 20:52 | Billing Data ---
Date of Service June 03, 2024 Coding Level of Care Code 11616 IN/OBS CONSULT LVL 3,45M
[2024-06-04] MEDS: VANCOMYCIN HCL 1,500 MG in SODIUM CHLORIDE 0.9% 500 ML IV SCH ×2 (00:12→23:57)
[2024-06-04 07:08] LABS: Creatinine Clr Calc Pharmacy 132.3 ml/min
[2024-06-04] MEDS: VANCOMYCIN HCL 1,500 MG in DEXTROSE 5% 500 ML IV SCH (12:51)
--- NOTE | 2024-06-04 13:08 | Infectious Disease Progress Nt ---
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 L reverse shoulder replacement 11/29/20 c/b L shoulder PJI s/p I&D with exchange of glenoid sphere/humerus tray/polyethylene, insertion of Stimulan vancomycin beads on 06/02 Impression: Jagjit Del Castillo is a 63-year-old man with history of L reverse shoulder replacement 11/29/20, HTN, who presents to [facility] after several weeks of L shoulder pain and outpatient evaluation on with L shoulder aspiration Cx + Corynebacterium spp. on 05/19, now s/p I&D with exchange of glenoid sphere/humerus tray/polyethylene, insertion of Stimulan vancomycin beads on 06/02. ID is consulted for L shoulder PJI. The patient underwent L reverse shoulder replacement 3.5 years ago. 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 The patient underwent bone scan on 05/28 which showed some uptake on the glenoid side; no loosening and no definitive e/o infection. L shoulder joint aspiration on 05/19 (fluid reportedly c/f infection; cell count not in [employer]), Cx + Corynebacterium spp (no sensis sent). No fevers or chills. He was recommended to undergo L shoulder replacement DAIR procedure with glenoid sphere exchange, polyethylene and baseplate exchange, extensive debridement, removal of cerclage wire, placement of antibiotic beads, IV antibiotics. On 06/02, he underwent: I&D with exchange of glenoid sphere/humerus tray/polyethylene, insertion of Stimulan vancomycin beads. OR Cx pending. He was initially placed on cefazolin. Discussion Pt presented with L shoulder PJI, now s/p I&D with exchange of glenoid sphere/humerus tray/polyethylene, insertion of Stimulan vancomycin beads on 05/16 8. ID is consulted for L shoulder PJI. Note outpatient Cx from 05/19 with Corynebacterium spp. Will follow OR Cx, thus far with GPRs on gram stain. For PJI, given retention of hardware, will likely recommend 6 weeks of pathogen- directed abx (often IV abx), followed by PO suppressive abx for at least 3-6 months, if not longer/indefinitely. Given outpatient Cx from 05/19 with Corynebacterium spp, will continue IV vancomycin (rather than daptomycin, which can have Corynebacterium resistance) while awaiting OR Cx. Recommendations: - Change to IV vancomycin (dosing per Rx) - Anticipate 6 weeks of pathogen-directed abx (often IV abx), followed by PO suppressive abx for at least 3-6 months, if not longer/indefinitely - F/u 06/02 OR Cx - Ensure close follow up with primary care and ortho after discharge - Would refer to local ID if able ID will continue to follow. Debbi Gould MD, S Infectious Diseases [facility]/ID Connect ID Connect direct line: [phone] Admission and Anticipated Discharge Date Admission Date: June 02, 2024 Subjective This patient recommendation is based on a telemedicine consult request which was completed asynchronously through chart review and information provided by the primary physician. The patient was not seen or examined today. The evaluation is consultative in nature and all patient care and treatment decisions can either be accepted or rejected by the patient's primary hospital-based treating physician using their own independent medical judgment for their patient. Time Spent Reviewing Chart: 31+ minutes PLEASE NOTE: E-consult was performed for this visit given limited telepresenter availability today. - Afebrile, WBC 10.30 - OR Cx thus far NGTD, GPRs on gram stain Results & Data Vital Signs (Past 12 Hours) Vital Signs Temp Pulse Pulse Resp BP Pulse Ox O2 Del Method 06/04/24 07:23 36.4 C L 69 16 133/74 95 Room Air 06/04/24 05:26 36.5 C 68 18 153/84 H 93 Room Air Diagnostic Findings Diagnostics: 06/03 OR note p Left Shoulder: Irrigation and extensive debridement, Exchange of Reverse Glenoid Sphere, and humerus Tray and Polyethylene, Insertion of Stimulan Antibiotic Beads, Removal of Cerclage Wire(Left) - Shalom Vega MD Patient was placed under regional block and general anesthetic. Patient was placed on the beachchair position on a standard operating room table with a towel roll under his left scapula, a foam headrest, protective eyewear, teds and SCDs, all extremities well-padded. Left shoulder exam demonstrates 120 degrees forward flexion 90 degrees abduction and neutral external rotation only. No in stability. No erythema. No drainage. No swelling. Left upper extremity was prepped and draped with ChloraPrep. Incision was made through his anterior deltopectoral scar. Skin incised sharply. Subcutaneous flaps were elevated off the deltoid and pectoralis. There was no cephalic vein. The deltopectoral interval was developed down through scar tissue until the conjoined tendon was identified. This was dissected up to the coracoid process. Dissection was taken lateral to the conjoined tendon down to subscapularis capsular type tissue. There were old sutures from the prior repair noted. There was no evidence of any infection at this level. Incision was carried down to bone the humerus. The Dall-Miles type cable was identified and there was no infection around that cable. The deltoid was reflected off the greater tuberosity. Some calcifications were removed which appeared to be heterotopic bone. The capsule of the joint was then opened up over the supraspinatus area location of the shoulder and purulent fluid was noted within the joint. This was cultured. This capsular tissue was then taken down with a subperiosteal dissection off the neck of the humerus anteriorly. There was some inflammatory tissue around the proximal humerus component with some erosion of the bone which looked like more of a chronic response then his symptoms suggested. There was erosion around 8 mm deep around the prosthetic circumferentially. This soft tissue in this area was cultured. The capsular tissue overlying the reverse replacement was excised superiorly. The synovium was excised anterior inferiorly and posteriorly leaving some of the capsular tissue intact for protection. This point I was able to use a bone hook to dislocate the implant. There was no polyethylene wear noted. Tuning fork was used to remove the baseplate uneventfully. Underneath the baseplate there was yellow infected appearing membrane which was cultured. This point I was able to retract the humerus behind the glenoid sphere and the security screw was loosened and then the extraction device was deployed removing the head uneventfully. Between the head and the glenoid baseplate there was more this fibrinous type yellow tissue that was sent for culture. With the baseplate fully exposed now with retractors it was noted that there was some erosion of the bone under the edges of the baseplate about 5 mm deep with some erosions. There was inflammatory type synovitis tissue that was removed. I used angled curettes and pituitary rongeur and curved rongeur's to remove this tissue. After further cultures were obtained we administered the IV antibiotics with 2 g Ancef. Baseplate was solidly fixed all screws were not loose. This time I used further irrigation to irrigate the bone around the baseplate and the humeral implants thoroughly. Pulsatile lavage irrigation was performed. A Betadine soak was used for over 3 minutes. This was washed out with further irrigation followed by irrigation with Xperience. Stimulan beads were mixed with vancomycin 1 g. The beads were packed under the edges of the baseplate into the erosions on the glenoid. These were packed circumflex infer ential around the glenoid baseplate and then a 42 diameter glenoid sphere with 29 mm inner diameter to match the 29 baseplate was impacted into position and the security screw tightened. The humerus was also irrigated with the Xperience the Sylvester taper dried and then the +0 high offset tray was placed with the high offset superior in position. Trial reduction demonstrated a 9 mm insert gave us satisfactory stability and I chose to use a retentive implant for the final implant to assure better stability. The final implant was the 9 mm retentive 42 reversed polyethylene. B angle 12.5 degrees. The humerus was then reduced to the glenoid. I then removed the cerclage wire using a wire drawing machine operator and this was removed uneventfully. I packed antibiotic beads around the humerus where the erosions were prior to reduction. Shoulder was stable and there was 120 degrees of forward flexion 90 degrees abduction and 30 to 40 degrees of external rotation with good stability. More irrigation with Xperience performed. Remainder the antibiotic beads were placed. 2 Hemovac drains were placed. These were placed deep to the deltopectoral interval. Deltopectoral interval was closed with PDS #1 suture. Subcutaneous tissues were closed with 2-0 antibiotic resistant Vicryl. Skin was closed with ivory. Silverlon dressing was applied. Sling immobilizer was applied. The patient tolerated procedure well. Peter ALBA is my produce assistant and functioned as produce assistant throughout the entire procedure. He was critical ambulance assistant with regard to retraction instrument management arm positioning wound closure and will participate in postoperative care of the patient. Micro Data: 06/02 L shoulder OR Cx: PEND Culture #6-Left Glenoid Sphere baseplate inter #2 Cx: NGTD; g/s moderate GPRs Culture #5-Left Glenoid sphere baseplate Interf #1 Cx: NGTD; g/s moderate GPRs Culture #4--Left Shoulder Baseplate Humeral Stem Cx: NGTD; g/s no orgs Culture #2--Left Shoulder Glenohumeral Joint #1 Cx: NGTD; g/s no orgs Culture #3--Left Shoulder Glenohumeral Joint #2 Cx: NGTD; g/s no orgs Culture #1--Left Shoulder Joint Fluid Cx: NGTD; g/s no orgs 11/ L shoulder aerobic/anaerobic Cx: Corynebacterium spp; gram stain mod WBCs, rare GPCs Antibiotic Summary: Vancomycin (06/02 present); 06/02 Stimulan beads intraoperatively Cefazolin (06/02)
--- NOTE | 2024-06-04 17:10 | Orthopedic Progress Note ---
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 Silverlon dressing will remain in place for 7 days from surgery. Continue Hemovac until drainage is minimal. Awaiting sensitivities of intraoperative cultures. Intraoperative cultures growing Staphylococcus hominis. Appreciate ID input. Continue IV vancomycin per infectious disease. PT/OTlimited range of motion of the left shoulder. Discharge planningawaiting final sensitivities. Once final antibiotic is decided upon and home IV antibiotics are set up, the patient will be able to be discharged. Earliest discharge will probably be tomorrow versus 2 days from now. Admission and Anticipated Discharge Date Admission Date: June 02, 2024 Subjective This is a patient who is 2 days postop from a left reverse shoulder replacement I&D for septic left shoulder. States he has no pain in the left shoulder. He has been doing some exercises with his elbow and his hand. No new complaints today. No issues with antibiotics. He has had a consultation with infectious disease. Physical Exam Constitutional: WD/WN, vitals as above no acute distress Musculoskeletal: Shoulder: + surgical incision (Left shoulder dressing is C/D/I. Silverlon dressing.) and + surgical drain present (Left shoulder Hemovac has drained 200 cc total); no skin erythema and no ecchymosis Skin: no rashes, warm and dry Trauma: no evidence of skin trauma Neurologic: normal touch/pain/proprioception Psychiatric: A+Ox3, euthymic affect Speech: normal rate/rhythm/volume of speech Results & Data Vital Signs (Past 12 Hours) Vital Signs Temp Pulse Pulse Resp BP Pulse Ox O2 Del Method 06/04/24 14:43 36.5 C 77 16 164/73 H 93 Room Air 06/04/24 07:23 36.4 C L 69 16 133/74 95 Room Air 06/04/24 05:26 36.5 C 68 18 153/84 H 93 Room Air Diagnostic Findings Spec: [id number] Collected: 06/02/24-1799 Received: 06/02/24-[address]: Shalom Vega M.D. Source: Shoulder,Left OV Order: Ordered: Aer/Danya Cult/Sm Comments: Comment Culture #1--Left Shoulder Joint Fluid Procedure Result Verified Site Gram Stain Final 06/03/24 Gram Stain Result Many WBCs Seen No Organisms Seen Aero/Danya Cult Preliminary 06/04/24-1221 Organism 1 Staphylococcus hominis Quantity Rare Sens Sensitivities to Follow
[2024-06-04] MEDS: VILAZODONE HCL 1 EA PO SCH (20:15)
--- NOTE | 2024-06-05 08:25 | Orthopedic Progress Note ---
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 Silverlon dressing will remain in place for 7 days from surgery. Continue Hemovac until drainage is minimal. Awaiting sensitivities of intraoperative cultures. Intraoperative cultures growing Staphylococcus hominis. Appreciate ID input. Continue IV vancomycin per infectious disease. PT/OTlimited range of motion of the left shoulder. Discharge planningawaiting final sensitivities. Once final antibiotic is decided upon and home IV antibiotics are set up, the patient will be able to be discharged. Will need definitive culture results prior to discharge I believe. Admission and Anticipated Discharge Date Admission Date: June 02, 2024 Subjective Feels well no significant pain Review of Systems Review of Systems: No fever or chills Physical Exam Musculoskeletal: Exam stable neurological exam motor exam intact. Results & Data Diagnostic Findings Still no growth on most of the cultures. May need to hold cultures for a few weeks to assure result.
[2024-06-05 08:57] LABS: Creatinine Clr Calc Pharmacy 134.1 ml/min
--- NOTE | 2024-06-05 09:29 | Pharmacy Report ---
Pharmacy PK ABX Note - Date of Service June 05, 2024 - Assessment and Plan Assessment 06/05: Reviewed vancomycin level, predicting therapeutic AUC/ANUSHA with 69% probability, will increase dose slightly for higher probability of therapeutic AUC/ANUSHA given severity of infection, repeat trough ordered for tomorrow to assess efficacy. Left shoulder culture growing staph hominis (S tetracycline, Vanc ANUSHA=1, Linezolid, daptomycin R oxacillin, Bactrim, Erythromycin, Clindamycin) 06/03: 63 year old M receiving vancomycin for treatment of bone and joint infection. Pertinent microbiologic data includes: shoulder,left gram stain: no growth. Day #1 of antimicrobial therapy. Plan Vancomycin * Loading dose: 2750 mg IV x 1 * Current dose: 1500 mg IV every 12 hours * Maintenance dose: increase to vancomycin 1750mg Q12H * Regimen is predicted to achieve target AUC/ANUSHA of 400-600 mg/L.hr * Vancomycin trough ordered for 06/06 @0930 Pharmacy will continue to follow and will adjust dose/frequency as necessary. Thank you. Pharmacy has transitioned to AUC monitoring for vancomycin. AUC/ANUSHA is the preferred PK/PD target and is associated with decreased risk of nephrotoxicity compared to traditional trough targets.
[2024-06-05] MEDS: VANCOMYCIN HCL 1,750 MG in SODIUM CHLORIDE 0.9% 500 ML IV SCH (10:53)
--- NOTE | 2024-06-05 13:48 | Infectious Disease Progress Nt ---
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 05/19 L shoulder aspiration Cx + Corynebacterium spp; 06/02 OR Cx + Staph hominis Impression: Jagjit Del Castillo is a 63-year-old man with history of L reverse shoulder replacement 11/29/20, HTN, who presents to [facility] after several weeks of L shoulder pain and outpatient evaluation on with L shoulder aspiration Cx + Corynebacterium spp. on 05/19, now s/p I&D with exchange of glenoid sphere/humerus tray/polyethylene, insertion of Stimulan vancomycin beads on 08/02. ID is consulted for L shoulder PJI. The patient underwent L reverse shoulder replacement 3.5 years ago. He developed acute L shoulder pain several weeks [employer], which was associated with increased inflammatory markers. The patient underwent bone scan on 05/28 which showed some uptake on the glenoid side; no loosening and no definitive e/o infection. L shoulder joint aspiration on 05/19 (fluid reportedly c/f infection; cell count not in [employer]), Cx + Corynebacterium spp (no sensis sent). No fevers or chills. He was recommended to undergo L shoulder replacement DAIR procedure with glenoid sphere exchange, polyethylene and baseplate exchange, extensive debridement, removal of cerclage wire, placement of antibiotic beads, IV antibiotics. On 06/02, he underwent: I&D with exchange of glenoid sphere/humerus tray/polyethylene, insertion of Stimulan vancomycin beads. OR Cx pending. He was initially placed on cefazolin. Discussion Pt presented with L shoulder PJI, now s/p I&D with exchange of glenoid sphere/humerus tray/polyethylene, insertion of Stimulan vancomycin beads on 06/02. ID is consulted for L shoulder PJI. Note outpatient Cx from 05/19 with Corynebacterium spp. (though with GPCs on gram stain). 06/02 OR Cx thus far with one specimen + Staph hominis and another specimen + GPRs (note the specimen positive for the Staph had a negative Gram stain; and GPRs on gram stain for other specimens which may still be the Corynebacterium). Confirmed with Dr. Vega patient did not receive abx prior to admission. Out of caution, Cx hold has been extended to 14 days. For PJI, given retention of hardware, will recommend 6 weeks of pathogen- directed IV abx, followed by PO suppressive abx for at least 3-6 months, if not longer/indefinitely. Given outpatient Cx from 05/19 with Corynebacterium spp, will continue IV vancomycin for a 6-week course (rather than daptomycin, which Corynebacterium can have resistance; will also cover Staph hominis). Although no Corynebacterium sensis from 05/19 Cx, after completion of IV abx, consider possible PO options of doxycycline (or linezolid can sometimes be used once daily to reduce myelosuppression risk, or tedizolid). Given isolation of Staph and retention of hardware, will also start adjunctive rifampin to target biofilm formation, likely to be continued for at least 3-6 months if patient is tolerating. Recommendations: - Continue IV vancomycin (dosing per Rx while inpatient currently on 1750 mg IV q12h), goal trough 13-18, to complete a 6-week course for R shoulder PJI (06/0207/13/24) ---- After completion of 6 weeks of IV abx, would then transition to PO abx for long-term PO suppression for at least 3-6 months, if not longer/indefinitely (pending final Cx, options may include doxycycline, once daily linezolid, or tedizolid) - Start rifampin 300 mg PO BID for adjunctive therapy given placement of hardware, likely continue for at least 3-6 months if tolerating, in addition to the abx above - F/u 06/02 OR Cx. Culture hold has been extended to 14 days. If additional growth on Cx (in addition to known Staph hominis and Corynebacterium), may need to adjust abx therapy - Weekly monitoring while on IV abx: CBC w/ diff, CMP, ESR, CRP. Recommend lab results are faxed to ortho and ID clinic (if applicable) - Ensure close follow up with primary care and ortho after discharge - Would refer to local ID if able ID will continue to follow. Debbi Gould MD, [facility] Infectious Diseases [facility]/ID Connect ID Connect direct line: [phone] Admission and Anticipated Discharge Date Admission Date: June 02, 2024 Subjective This patient recommendation is based on a telemedicine consult request which was completed asynchronously through chart review and information provided by the primary physician. The patient was not seen or examined today. The evaluation is consultative in nature and all patient care and treatment decisions can either be accepted or rejected by the patient's primary hospital-based treating physician using their own independent medical judgment for their patient. Time Spent Reviewing Chart: 31+ minutes - Afebrile - 06/02 OR Cx + Staph hominis and GPR Results & Data Vital Signs (Past 12 Hours) Vital Signs Temp Pulse Resp BP Pulse Ox O2 Del Method 06/05/24 08:26 36.6 C 76 16 147/93 H 95 Room Air Diagnostic Findings Diagnostics: 06/03 OR note p Left Shoulder: Irrigation and extensive debridement, Exchange of Reverse Glenoid Sphere, and humerus Tray and Polyethylene, Insertion of Stimulan Antibiotic Beads, Removal of Cerclage Wire(Left) - Shalom Vega MD Patient was placed under regional block and general anesthetic. Patient was placed on the beachchair position on a standard operating room table with a towel roll under his left scapula, a foam headrest, protective eyewear, teds and SCDs, all extremities well-padded. Left shoulder exam demonstrates 120 degrees forward flexion 90 degrees abduction and neutral external rotation only. No instability. No erythema. No drainage. No swelling. Left upper extremity was prepped and draped with ChloraPrep. Incision was made through his anterior deltopectoral scar. Skin incised sharply. Subcutaneous flaps were elevated off the deltoid and pectoralis. There was no cephalic vein. The deltopectoral interval was developed down through scar tissue until the conjoined tendon was identified. This was dissected up to the coracoid process. Dissection was taken lateral to the conjoined tendon down to subscapularis capsular type tissue. There were old sutures from the prior repair noted. There was no evide nce of any infection at this level. Incision was carried down to bone the humerus. The Dall-Miles type cable was identified and there was no infection around that cable. The deltoid was reflected off the greater tuberosity. Some calcifications were removed which appeared to be heterotopic bone. The capsule of the joint was then opened up over the supraspinatus area location of the shoulder and purulent fluid was noted within the joint. This was cultured. This capsular tissue was then taken down with a subperiosteal dissection off the neck of the humerus anteriorly. There was some inflammatory tissue around the proximal humerus component with some erosion of the bone which looked like more of a chronic response then his symptoms suggested. There was erosion around 8 mm deep around the prosthetic circumferentially. This soft tissue in this area was cultured. The capsular tissue overlying the reverse replacement was excised superiorly. The synovium was excised anterior inferiorly and posteriorly leaving some of the capsular tissue intact for protection. This point I was able to use a bone hook to dislocate the implant. There was no polyethylene wear noted. Tuning fork was used to remove the baseplate uneventfully. Underneath the baseplate there was yellow infected appearing membrane which was cultured. This point I was able to retract the humerus behind the glenoid sphere and the security screw was loosened and then the extraction device was deployed removing the head uneventfully. Between the head and the glenoid baseplate there was more this fibrinous type yellow tissue that was sent for culture. With the baseplate fully exposed now with retractors it was noted that there was some erosion of the bone under the edges of the baseplate about 5 mm deep with some erosions. There was inflammatory type synovitis tissue that was removed. I used angled curettes and pituitary rongeur and curved rongeur's to remove this tissue. After further cultures were obtained we administered the IV antibiotics with 2 g Ancef. Baseplate was solidly fixed all screws were not loose. This time I used further irrigation to irrigate the bone around the baseplate and the humeral implants thoroughly. Pulsatile lavage irrigation was performed. A Betadine soak was used for over 3 minutes. This was washed out with further irrigation followed by irrigation with Xperience. Stimulan beads were mixed with vancomycin 1 g. The beads were packed under the edges of the baseplate into the erosions on the glenoid. These were packed circumflex inferential around the glenoid baseplate and then a 42 diameter glenoid sphere with 29 mm inner diameter to match the 29 baseplate was impacted into position and the security screw tightened. The humerus was also irrigated with the Xperience the Sylvester taper dried and then the +0 high offset tray was placed with the high offset superior in position. Trial reduction demonstrated a 9 mm insert gave us satisfactory stability and I chose to use a retentive implant for the final implant to assure better stability. The final implant was the 9 mm retentive 42 reversed polyethylene. B angle 12.5 degrees. The humerus was then reduced to the glenoid. I then removed the cerclage wire using a panel wirer and this was removed uneventfully. I packed antibiotic beads around the humerus where the erosions were prior to reduction. Shoulder was stable and there was 120 degrees of forward flexion 90 degrees abduction and 30 to 40 degrees of external rotation with good stability. More irrigation with Xperience performed. Remainder the antibiotic beads were placed. 2 Hemovac drains were placed. These were placed deep to the deltopectoral interval. Deltopectoral interval was closed with PDS #1 suture. Subcutaneous tissues were closed with 2-0 antibiotic resistant Vicryl. Skin was closed with ivory. Silverlon dressing was applied. Sling immobilizer was applied. The patient tolerated procedure well. Peter ALBA is my staffing assistant and functioned as staffing assistant throughout the entire procedure. He was critical education assistant with regard to retraction instrument management arm positioning wound closure and will participate in postoperative care of the patient. Micro Data: 06/02 L shoulder OR Cx: Culture #6-Left Glenoid Sphere baseplate inter #2 Cx: GPRs; g/s moderate GPRs Culture #5-Left Glenoid sphere baseplate Interf #1 Cx: NGTD; g/s moderate GPRs Culture #4--Left Shoulder Baseplate Humeral Stem Cx: NGTD; g/s no orgs Culture #2--Left Shoulder Glenohumeral Joint #1 Cx: NGTD; g/s no orgs Culture #3--Left Shoulder Glenohumeral Joint #2 Cx: NGTD; g/s no orgs Culture #1--Left Shoulder Joint Fluid Cx: Staph hominis (R-oxacillin; S- vanc/tetra/linezolid/daptomycin) ; g/s no orgs 11/ L shoulder aerobic/anaerobic Cx: Corynebacterium spp; gram stain mod WBCs, rare GPCs Antibiotic Summary: Vancomycin (06/02 present); 06/02 Stimulan beads intraoperatively rifampin (06/05 present) prior Cefazolin (06/02)
[2024-06-05] MEDS: rifAMPin 300 MG CAPSULE PO SCH (20:13)
--- NOTE | 2024-06-06 08:03 | Orthopedic Progress Note ---
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 Silverlon dressing will remain in place for 7 days from surgery. Discontinue Hemovac as there is no further drainage. Awaiting sensitivities of intraoperative cultures. Intraoperative cultures growing gram-positive bacilli not identified yet, and Staphylococcus hominis. Appreciate ID input. Continue IV vancomycin per infectious disease. PICC today. PT/OTlimited range of motion of the left shoulder. Discharge planningawaiting final sensitivities. Once final antibiotic is decided upon and home IV antibiotics are set up, the patient will be able to be discharged. Will need definitive culture results prior to discharge I believe. Admission and Anticipated Discharge Date Admission Date: June 02, 2024 Subjective No new complaints Review of Systems Review of Systems: No systemic illness Results & Data Vital Signs (Past 12 Hours) Mild hypertension otherwise stable Laboratory Results one intraoperative culture growing gram positive bacilli not identified yet. No other culture was growing staph hominis.
[2024-06-06 08:13] VITALS: BP 170/93; RESP 16; TEMP 97.5; O2SAT 98
[2024-06-06 10:13] LABS: Creatinine Clr Calc Pharmacy 118.6 ml/min
--- NOTE | 2024-06-06 10:23 | Pharmacy Report ---
Pharmacy PK ABX Note - Date of Service June 06, 2024 - Assessment and Plan Assessment 06/06: Reviewed vancomycin trough, predicting therapeutic AUC/ANUSHA 481 mg/L.hr with a probability of 95%, ID plan for 6 weeks of IV vancomycin, continue current regimen, level early next week to assess for efficacy/toxicity 06/05: Reviewed vancomycin level, predicting therapeutic AUC/ANUSHA with 69% probability, will increase dose slightly for higher probability of therapeutic AUC/ANUSHA given severity of infection, repeat trough ordered for tomorrow to assess efficacy. Left shoulder culture growing staph hominis (S tetracycline, Vanc ANUSHA=1, Linezolid, daptomycin R oxacillin, Bactrim, Erythromycin, Clindamycin) 06/03: 63 year old M receiving vancomycin for treatment of bone and joint infection. Pertinent microbiologic data includes: shoulder,left gram stain: no growth. Day #1 of antimicrobial therapy. Plan Vancomycin * Maintenance dose: increase to vancomycin 1750mg Q12H * Regimen is predicted to achieve target AUC/ANUSHA of 400-600 mg/L.hr * Repeat level early next week Pharmacy will continue to follow and will adjust dose/frequency as necessary. Thank you. Pharmacy has transitioned to AUC monitoring for vancomycin. AUC/ANUSHA is the preferred PK/PD target and is associated with decreased risk of nephrotoxicity compared to traditional trough targets.
[2024-06-06] MEDS: VANCOMYCIN LEVEL ONE (10:46)
--- NOTE | 2024-06-06 14:03 | Infectious Disease Progress Nt ---
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 on 05/19, now s/p I&D with exchange of glenoid sphere/humerus tray/polyethylene, insertion of Stimulan vancomycin beads on 06/02. ID is consulted for L shoulder PJI. The patient underwent L reverse shoulder replacement 3.5 years ago. He developed acute L shoulder pain several weeks [employer], which was associated with increased inflammatory markers. The patient underwent bone scan on 05/28 which showed some uptake on the glenoid side; no loosening and no definitive e/o infection. L shoulder joint aspiration on 05/19 (fluid reportedly c/f infection; cell count not in [employer]), Cx + Corynebacterium spp (no sensis sent). No fevers or chills. He was recommended to undergo L shoulder replacement DAIR procedure with glenoid sphere exchange, polyethylene and baseplate exchange, extensive debridement, removal of cerclage wire, placement of antibiotic beads, IV antibiotics. On 06/02, he underwent: I&D with exchange of glenoid sphere/humerus tray/polyethylene, insertion of Stimulan vancomycin beads. OR Cx pending. He was initially placed on cefazolin. Discussion Pt presented with L shoulder PJI, now s/p I&D with exchange of glenoid sphere/humerus tray/polyethylene, insertion of Stimulan vancomycin beads on 06/02. ID is consulted for L shoulder PJI. Note outpatient Cx from 05/19 with Corynebacterium spp. (though with GPCs on gram stain). 06/02 OR Cx thus far with one specimen positive for Staph hominis and multiple specimens + GPRs (which could be the Corynebacterium as isolated previously, vs. an organism like Cutibacterium acnes). Confirmed with Dr. Vega patient did not receive abx prior to admission. Out of caution, Cx hold has been extended to 14 days. I called micro on 06/06 right now, there is insufficient growth to identify the GPRs on MALDI; I also requested that sensis be performed once speciated. For PJI, given retention of hardware, will recommend 6 weeks of pathogen-di rected IV abx, followed by PO suppressive abx for at least 3-6 months, if not longer/indefinitely. Given outpatient Cx from 05/19 with Corynebacterium spp, will continue IV vancomycin for a 6-week course (rather than daptomycin, which Corynebacterium can have resistance; will also cover Staph hominis) though if the GPRs speciate to an organism other than Corynebacterium may need to adjust therapy accordingly. Will depend on final Cx results, but after completion of IV abx, anticipate long-term PO suppression for at least 3-6 months, if not longer/indefinitely. The Staph hominis has only been isolated in one specimen thus far (whereas GPRs in multiple) though 05/19 shoulder aspiration did have GPCs on gram stain thus unclear how much the Staph hominis is involved as a driving pathogen of the infection. Overall, out of caution, given isolation of Staph and retention of hardware, will also treat with adjunctive rifampin to target biofilm formation, likely to be continued for at least 3-6 months if patient is tolerating. Recommendations: - Continue IV vancomycin (dosing per Rx while inpatient currently on 1750 mg IV q12h), goal trough 13-18, to complete a 6-week course for R shoulder PJI (06/0207/13/24). ---- After completion of 6 weeks of IV abx, would then transition to PO abx for long-term PO suppression for at least 3-6 months, if not longer/indefinitely (abx selection pending final Cx) - Start rifampin 300 mg PO BID for adjunctive therapy given placement of hardware, likely continue for at least 3-6 months if tolerating, in addition to the abx above - F/u 06/02 OR Cx. Culture hold has been extended to 14 days. GPR identification still pending, If additional growth on Cx (besides Staph hominis and Corynebacterium), may need to adjust abx therapy accordingly - Weekly monitoring while on IV abx: CBC w/ diff, CMP, ESR, CRP. Recommend lab results are faxed to ortho and ID clinic (if applicable) - Ensure close follow up with primary care and ortho after discharge - Would refer to local ID if able Thank you for letting ID participate in the care of this patient. ID will sign off at this time. If questions, please contact the [facility] call center at [phone]. Debbi Gould MD, S Infectious Diseases [facility] direct line: [phone] Admission and Anticipated Discharge Date Admission Date: June 02, 2024 Subjective This patient recommendation is based on a telemedicine consult request which was completed asynchronously through chart review and information provided by the primary physician. The patient was not seen or examined today. The evaluation is consultative in nature and all patient care and treatment decisions can either be accepted or rejected by the patient's primary hospital-based treating physici an using their own independent medical judgment for their patient. Time Spent Reviewing Chart: 31+ minutes - Afebrile - 06/02 OR specimens now with multiple Cx + GPRs - Called micro on 06/06 right now insufficient growth to ID GPRs on MALDI; I also requested that sensis be performed once speciated Results & Data Vital Signs (Past 12 Hours) Vital Signs Temp Pulse Resp BP Pulse Ox O2 Del Method 06/06/24 08:12 36.4 C L 72 16 170/93 H 98 Room Air Diagnostic Findings Diagnostics: 06/03 OR note p Left Shoulder: Irrigation and extensive debridement, Exchange of Reverse Glenoid Sphere, and humerus Tray and Polyethylene, Insertion of Stimulan Antibiotic Beads, Removal of Cerclage Wire(Left) - Shalom Vega MD Patient was placed under regional block and general anesthetic. Patient was placed on the beachchair position on a standard operating room table with a towel roll under his left scapula, a foam headrest, protective eyewear, teds and SCDs, all extremities well-padded. Left shoulder exam demonstrates 120 degrees forward flexion 90 degrees abduction and neutral external rotation only. No instability. No erythema. No drainage. No swelling. Left upper extremity was prepped and draped with ChloraPrep. Incision was made through his anterior deltopectoral scar. Skin incised sharply. Subcutaneous flaps were elevated off the deltoid and pectoralis. There was no cephalic vein. The deltopectoral interval was developed down through scar tissue until the conjoined tendon was identified. This was dissected up to the coracoid process. Dissection was taken lateral to the conjoined tendon down to subscapularis capsular type tissue. There were old sutures from the prior repair noted. There was no evidence of any infection at this level. Incision was carried down to bone the humerus. The Dall-Miles type cable was identified and there was no infection around that cable. The deltoid was reflected off the greater tuberosity. Some calcifications were removed which appeared to be heterotopic bone. The capsule of the joint was then opened up over the supraspinatus area location of the shoulder and purulent fluid was noted within the joint. This was cultured. This capsular tissue was then taken down with a subperiosteal dissection off the neck of the humerus anteriorly. There was some inflammatory tissue around the proximal humerus component with some erosion of the bone which looked like more of a chronic response then his symptoms suggested. There was erosion around 8 mm deep around the prosthetic circumferentially. This soft tissue in this area was cultured. The capsular tissue overlying the reverse replacement was excised superiorly. The synovium was excised anterior inferiorly and posteriorly leaving some of the capsular tissue intact for protection. This point I was able to use a bone hook to dislocate the implant. There was no polyethylene wear noted. Tuning fork was used to remove the baseplate uneventfully. Underneath the baseplate there was yellow infected appearing membrane which was cultured. This point I was able to retract the humerus behind the glenoid sphere and the security screw was loosened and then the extraction device was deployed removing the head uneventfully. Between the head and the glenoid baseplate there was more this fibrinous type yellow tissue that was sent for culture. With the baseplate fully exposed now with retractors it was noted that there was some erosion of the bone under the edges of the baseplate about 5 mm deep with some erosions. There was inflammatory type synovitis tissue that was removed. I used angled curettes and pituitary rongeur and curved rongeur's to remove this tissue. After further cultures were obtained we administered the IV antibiotics with 2 g Ancef. Baseplate was solidly fixed all screws were not loose. This time I used further irrigation to irrigate the bone around the baseplate and the humeral implants thoroughly. Pulsatile lavage irrigation was performed. A Betadine soak was used for over 3 minutes. This was washed out with further irrigation followed by irrigation with Xperience. Stimulan beads were mixed with vancomycin 1 g. The beads were packed under the edges of the baseplate into the erosions on the glenoid. These were packed circumflex inferential around the glenoid baseplate and then a 42 diameter glenoid sphere with 29 mm inner diameter to match the 29 baseplate was impacted into position and the security screw tightened. The humerus was also irrigated with the Xperience the Sylvester taper dried and then the +0 high offset tray was placed with the high offset superior in position. Trial reduction demonstrated a 9 mm insert gave us satisfactory stability and I chose to use a retentive implant for the final implant to assure better stability. The final implant was the 9 mm retentive 42 reversed polyethylene. B angle 12.5 degrees. The humerus was then reduced to the glenoid. I then removed the cerclage wire using a retail wireless sales consultant and this was removed uneventfully. I packed antibiotic beads around the humerus where the erosions were prior to reduction. Shoulder was stable and there was 120 degrees of forward flexion 90 degrees abduction and 30 to 40 degrees of external rotation with good stability. More irrigation with Xperience performed. Remainder the antibiotic beads were placed. 2 Hemovac drains were placed. These were placed deep to the deltopectoral interval. Deltopectoral interval was closed with PDS #1 suture. Subcutaneous tissues were closed with 2-0 antibiotic resistant Vicryl. Skin was closed with ivory. Silverlon dressing was applied. Sling immobilizer was applied. The patient tolerated procedure well. Peter ALBA is my special ed assistant and functioned as special ed assistant throughout the entire procedure. He was critical senior assistant manager with regard to retraction instrument management arm positioning wound closure and will participate in postoperative care of the patient. Micro Data: 06/02 L shoulder OR Cx: Culture #6-Left Glenoid Sphere baseplate inter #2 Cx: GPRs; g/s moderate GPRs Culture #5-Left Glenoid sphere baseplate Interf #1 Cx: NGTD; g/s moderate GPRs Culture #4--Left Shoulder Baseplate Humeral Stem Cx: NGTD; g/s no orgs Culture #2--Left Shoulder Glenohumeral Joint #1 Cx: NGTD; g/s no orgs Culture #3--Left Shoulder Glenohumeral Joint #2 Cx: GPRs; g/s no orgs Culture #1--Left Shoulder Joint Fluid Cx: Staph hominis (R-oxacillin; S- vanc/tetra/linezolid/daptomycin), GPRs; g/s no orgs 11/ L shoulder aerobic/anaerobic Cx: Corynebacterium spp; gram stain mod WBCs, rare GPCs Antibiotic Summary: Vancomycin (06/02 present); 06/02 Stimulan beads intraoperatively rifampin (06/05 present) prior Cefazolin (06/02)
[2024-06-06 16:01] VITALS: PULSE 67
[2024-06-06] MEDS: VANCOMYCIN IV ONE (18:01)
[2024-06-06] MEDS: D5W IV ONE (18:01)
[2024-06-06] MEDS ORDERED: VANCOMYCIN IV ONE (22:00)
[2024-06-06] MEDS ORDERED: VANCOMYCIN IV SCH (22:00)
[2024-06-06] MEDS ORDERED: D5W IV ONE (22:00)
[2024-06-06] MEDS ORDERED: D5W IV SCH (22:00)
[2024-06-07] MEDS ORDERED: VANCOMYCIN IV ONE (10:00)
[2024-06-07] MEDS ORDERED: D5W IV ONE (10:00)
== END 2024-06-06 20:58 | disposition home health service (06) | DRG 483 ==
LOC: ASU 11:45 → 3N 19:58